=== PATIENT | female | born 1940 | race Caucasian/White ===

== ENCOUNTER 2017-02-08 12:13 | Emergency (ER) | payer MEDICARE, MEDICAID, OTHER ==
--- NOTE | 2017-02-08 12:38 | EDM.PDOC ---
ED HPI GENERAL MEDICAL PROBLEM - General Chief Complaint: Chest Pain Stated Complaint: [facility] Time Seen by Provider: 02/08/17 12:25 Source of Information: Reports: Patient History Limitations: Reports: No Limitations - History of Present Illness INITIAL COMMENTS - FREE TEXT/NARRATIVE: Patient is a 77-year-old female who presents to the ED complaining of substernal chest pain that radiated into her back. Patient states it started at about 10:00 this morning while sitting at the kitchen table. There was no provoking activities. She's had similar pain in the past prior to having open coronary bypass surgery in 2005. This was performed at [facility]. She had 3x bypass. She did become mildly diaphoretic and started shaking. She had no dizziness, no radiation of pain in her left or right arm. Pain is currently gone at this time. She has no complaints. Vital signs are stable. Past medical history includes diabetes, coronary disease, hypertension, hypothyroidism, anemia, and congestive heart failure. Current Medications: Aspirin [Halfprin] 81 mg PO DAILY 02/26/15 Ferrous Sulfate 325 mg PO QPM 02/26/15 Furosemide 40 mg PO DAILY 02/26/15 Insulin Aspart [Novolog] 8 unit SQ TID 02/26/15 Insulin Glarg,Human.Rec.Analog [LantUS Solostar] 10 units SUBCUT BEDTIME Levothyroxine [Synthroid] 88 mcg PO DAILY 02/26/15 Levofloxacin [Levaquin] 750 mg PO DAILY #7 tablet 06/12/16 Metoprolol Succinate [Toprol XL] 25 mg PO DAILY 06/12/16 Pertinent surgical history includes coronary artery bypass grafts. 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 - Related Data Allergies Allergy/AdvReac Type Severity Reaction Status Date / Time aloe vera Allergy Rash Verified 02/08/17 12:23 band-aids Allergy Rash Uncoded 06/12/16 16:56 Home Meds: Home Meds Aspirin [Halfprin] 81 mg PO DAILY 02/26/15 [History] Ferrous Sulfate 325 mg PO QPM 02/26/15 [History] Furosemide 40 mg PO DAILY 02/26/15 [History] Insulin Aspart [Novolog] 8 unit SQ TID 02/26/15 [History] Insulin Glarg,Human.Rec.Analog [LantUS Solostar] 10 units SUBCUT BEDTIME [History] Levothyroxine [Synthroid] 88 mcg PO DAILY 02/26/15 [History] Levofloxacin [Levaquin] 750 mg PO DAILY #7 tablet 06/12/16 [Rx] Metoprolol Succinate [Toprol XL] 25 mg PO DAILY 06/12/16 [History] Nitroglycerin 0.4 mg SL ASDIRECTED PRN #1 bottle 02/08/17 [Rx] Past Medical History Cardiovascular History: Reports: High Cholesterol, Hypertension, [place] Gastrointestinal History: Reports: Chronic Constipation Endocrine/Metabolic History: Reports: Diabetes, Type II - Past Surgical History HEENT Surgical History: Reports: Cataract Surgery Cardiovascular Surgical History: Reports: Other (See Below) Social & Family History - Tobacco Use Smoking Status *Q: Never Smoker - Caffeine Use Caffeine Use: Reports: Coffee - Recreational Drug Use Recreational Drug Use: No ED ROS GENERAL - Review of Systems Review Of Systems: See Below Constitutional: Reports: Diaphoresis. Denies: Fever, Chills, Decreased Appetite HEENT: Reports: No Symptoms Respiratory: Denies: Shortness of Breath, Cough, Sputum Cardiovascular: Reports: Chest Pain. Denies: Dyspnea on Exertion, Lightheadedness, Palpitations, Syncope GI/Abdominal: Denies: Abdominal Pain, Constipation, Diarrhea, Nausea, Vomiting Musculoskeletal: Reports: Back Pain Neurological: Denies: Dizziness, Headache, Numbness, Tingling ED EXAM, GENERAL - Physical Exam Exam: See Below Exam Limited By: No Limitations General Appearance: Alert, WD/WN, No Apparent Distress Eye Exam: Bilateral Eye: PERRL Ears: Hearing Grossly Normal Nose: Normal Inspection Throat/Mouth: Normal Voice, No Airway Compromise Head: Atraumatic, Normocephalic Neck: Normal Inspection, Supple, Non-Tender, Other (no jvd) Respiratory/Chest: No Respiratory Distress, Lungs Clear, Normal Breath Sounds, No Accessory Muscle Use, Chest Non-Tender Cardiovascular: Normal Peripheral Pulses, Regular Rate, Rhythm, Systolic Murmur Peripheral Pulses: 2+: Radial (L), Radial (R) GI/Abdominal: Normal Bowel Sounds, Soft, Non-Tender, No Organomegaly, No Distention Back Exam: Normal Inspection. No: CVA Tenderness (L), CVA Tenderness (R), Muscle Spasm, Paraspinal Tenderness, Vertebral Tenderness Extremities: Normal Inspection, Non-Tender, No Pedal Edema, Normal Capillary Refill Neurological: Alert, Oriented, CN II-XII Intact, Normal Cognition, No Motor/ Sensory Deficits Psychiatric: Normal Affect, Normal Mood Skin Exam: Warm, Dry, Intact, Normal Color, No Rash Course - Vital Signs Last Recorded V/S: Last Vital Signs Temp 97.3 F 02/08/17 12:19 Pulse 73 02/08/17 16:15 Resp 16 02/08/17 16:15 BP 163/70 H 02/08/17 16:15 Pulse Ox 98 02/08/17 16:15 - Orders/Labs/Meds Orders: Active Orders 24 hr Category Date Time Status Blood Glucose Check, Bedside [RC] ONETIME Care 02/08/17 15:04 Active EKG Documentation Completion [RC] STAT Care 02/08/17 12:34 Active Labs: Laboratory Tests 02/08/17 02/08/17 02/08/17 Range/Units 12:50 12:50 12:50 WBC 7.61 (3.98-10.04) K/mm3 RBC 4.72 (3.98-5.22) M/mm3 Hgb 12.9 (11.2-15.7) gm/L Hct 40.6 (34.1-44.9) % MCV 86.0 (79.4-94.8) fl MCH 27.3 (25.6-32.2) pg MCHC 31.8 L (32.2-35.5) g/dl RDW Std Deviation 50.4 H (36.4-46.3) fL Plt Count 248 (182-369) K/mm3 MPV 9.3 L (9.4-12.3) fl Neut % (Auto) 73.7 H (34.0-71.1) % Lymph % (Auto) 17.3 L (19.3-51.7) % [place] % (Auto) 7.2 (4.7-12.5) % Eos % (Auto) 1.2 (0.7-5.8) Baso % (Auto) 0.5 (0.1-1.2) % Neut # (Auto) 5.60 (1.56-6.13) K/mm3 Lymph # (Auto) 1.32 (1.18-3.74) K/mm3 [place] # (Auto) 0.55 H (0.24-0.36) K/mm3 Eos # (Auto) 0.09 (0.04-0.36) K/mm3 Baso # (Auto) 0.04 (0.01-0.08) K/mm3 PT 11.5 (8.0-13.0) SECONDS INR 1.05 APTT (22-36) SECONDS Sodium 141 (136-145) mEq/L Potassium 3.9 (3.5-5.1) mEq/L Chloride 105 (98-107) mEq/L Carbon Dioxide 29 (21-32) mEq/L Anion Gap 10.9 (5-15) BUN 19 H (7-18) mg/dL Creatinine 1.0 (0.55-1.02) mg/dL Est Cr Clr Drug Dosing TNP Estimated GFR (MDRD) 54 (>60) mL/min BUN/Creatinine Ratio 19.0 H (14-18) Glucose 108 (83-115) mg/dL POC Glucose (83-110) mg/dL Calcium 9.1 (8.5-10.1) mg/dL Total Bilirubin 0.7 (0.2-1.0) mg/dL AST 37 (15-37) U/L ALT 26 (14-59) U/L Alkaline Phosphatase 81 (46-116) U/L Troponin I < 0.017 (0.00-0.056) ng/mL C-Reactive Protein 1.0 (<1.0) mg/dL Total Protein 7.2 (6.4-8.2) g/dl Albumin 3.2 L (3.4-5.0) g/dl Globulin 4.0 gm/dL Albumin/Globulin Ratio 0.8 L (1-2) TSH 3rd Generation 1.996 (0.358-3.74) uIU/mL 02/08/17 02/08/17 02/08/17 Range/Units 12:50 14:55 15:03 WBC (3.98-10.04) K/mm3 RBC (3.98-5.22) M/mm3 Hgb (11.2-15.7) gm/L Hct (34.1-44.9) % MCV (79.4-94.8) fl MCH (25.6-32.2) pg MCHC (32.2-35.5) g/dl RDW Std Deviation (36.4-46.3) fL Plt Count (182-369) K/mm3 MPV (9.4-12.3) fl Neut % (Auto) (34.0-71.1) % Lymph % (Auto) (19.3-51.7) % [place] % (Auto) (4.7-12.5) % Eos % (Auto) (0.7-5.8) Baso % (Auto) (0.1-1.2) % Neut # (Auto) (1.56-6.13) K/mm3 Lymph # (Auto) (1.18-3.74) K/mm3 [place] # (Auto) (0.24-0.36) K/mm3 Eos # (Auto) (0.04-0.36) K/mm3 Baso # (Auto) (0.01-0.08) K/mm3 PT (8.0-13.0) SECONDS INR APTT 26 (22-36) SECONDS Sodium (136-145) mEq/L Potassium (3.5-5.1) mEq/L Chloride (98-107) mEq/L Carbon Dioxide (21-32) mEq/L Anion Gap (5-15) BUN (7-18) mg/dL Creatinine (0.55-1.02) mg/dL Est Cr Clr Drug Dosing Estimated GFR (MDRD) (>60) mL/min BUN/Creatinine Ratio (14-18) Glucose (83-115) mg/dL POC Glucose 110 (83-110) mg/dL Calcium (8.5-10.1) mg/dL Total Bilirubin (0.2-1.0) mg/dL AST (15-37) U/L ALT (14-59) U/L Alkaline Phosphatase (46-116) U/L Troponin I < 0.017 (0.00-0.056) ng/mL C-Reactive Protein (<1.0) mg/dL Total Protein (6.4-8.2) g/dl Albumin (3.4-5.0) g/dl Globulin gm/dL Albumin/Globulin Ratio (1-2) TSH 3rd Generation (0.358-3.74) uIU/mL - Re-Assessments/Exams Free Text/Narrative Re-Assessment/Exam: 02/08/17 12:36 Ordered chest x-ray, CBC, chem 14, troponin, PT/INR, PTT, and TSH. Patient has taken 2 adult aspirin this morning with onset of pain. Patient is pain-free at this time. EKG sinus rhythm at 60 beats per minute, T-wave inversion V1 through V3, cannot rule out ischemia, decreased voltage limb leads, abnormal R wave progression with to transition, T-wave inversion was present V1 and V2 on previous EKG June 12, 2016. Labs reviewed: White blood cell count 7.61, hemoglobin is 12.9, platelets 248, coags within normal limits, sodium 141, potassium 3.9, creatinine 1.0, LFTs within normal limits, troponin less than 0.017, TSH is 1.996. Ordered a troponin to be obtained 2 hours from previous blood draw. Chest x-ray revealed: Cardiomegaly with what appears to be interstitial peripheral lung disease, mild vascular congestion, sternotomy wires present from previous coronary artery bypass, no acute findings noted. Final Interpretation pending. Dr. Phillip reviewed. 02/08/17 15:05 Bedside glucose 110. Patient's can have a diabetic meal. 1541 Second troponin results: Within normal limits. Patient remains pain-free. Offered to admit for further cardiac evaluation and obtain stress test to which she has refused. We'll send the patient home with sublingual nitroglycerin prescription if pain presents again. She will see her primary care provider in the next week for reevaluation and further treatment. Discharged home with instructions as documented. Departure - Departure Time of Disposition: 15:49 Disposition: Home, Self-Care 01 Condition: good Clinical Impression: Chest pain in adult Prescriptions: Nitroglycerin 0.4 mg SL ASDIRECTED PRN #1 bottle PRN Reason: Chest Pain Instructions: Chest Wall Pain, [id number] Referrals: Lianet Tejada NP [Primary Care Provider] - Forms: ED Department Discharge Additional Instructions: As discussed labs, chest x-ray, EKG did not reveal any acute findings suggesting you're having a heart attack. Due to your history of similar pain prior to when he had a coronary artery bypass will go ahead and prescribe sublingual nitroglycerin to which you take 1 tab every 5 minutes with onset of chest pain. Upon onset of chest pain please call 911 so that she be transported and seen at the closest ER. Please see her primary care provider in the next week for reevaluation and schedule stress test if deemed necessary. Again return to ED if experience chest pain, shortness of breath, syncopal episode, dizziness, or any additional new or worsening symptoms. Continue taking all your home medications as prescribed. - My Orders Last 24 Hours: My Active Orders 02/08/17 12:34 EKG Documentation Completion [RC] STAT 02/08/17 15:04 Blood Glucose Check, Bedside [RC] ONETIME - Assessment/Plan Last 24 Hours: My Active Orders 02/08/17 12:34 EKG Documentation Completion [RC] STAT 02/08/17 15:04 Blood Glucose Check, Bedside [RC] ONETIME
--- NOTE | 2017-02-08 15:45 | CR ---
Chest: Two views of the chest were obtained. Comparison: Previous chest x-ray of 02/26/15. Heart is enlarged. Sternotomy wires are noted. Previous CABG is noted. Pulmonary vessels are slightly congested. Lungs otherwise are clear. Degenerative spurring is noted within the spine with osteopenia. Impression: 1. Cardiomegaly and mild pulmonary vascular congestion. 2. Other incidental findings. Diagnostic code #3
[2017-02-08 16:41] VITALS: BP 163/70
== END 2017-02-08 16:15 | disposition home or self-care (01) ==
LOC: JD.ED 12:13
DX: R07.2 Precordial pain (principal); I25.810 Atherosclerosis of coronary artery bypass graft(s) without angina pectoris; D64.9 Anemia, unspecified; E03.9 Hypothyroidism, unspecified; I11.0 Hypertensive heart disease with heart failure; I50.9 Heart failure, unspecified; I25.2 Old myocardial infarction; E78.00 Pure hypercholesterolemia, unspecified; E11.9 Type 2 diabetes mellitus without complications; Z98.49 Cataract extraction status, unspecified eye; Z79.4 Long term (current) use of insulin; Z79.82 Long term (current) use of aspirin; Z79.899 Other long term (current) drug therapy; Z91.09 Other allergy status, other than to drugs and biological substances
CPT/HCPCS: 36415; 71020; 71020-26; 80053; 82962; 84443; 84484; 85025; 85610; 85730; 86140; 93005; 99284; 99285-25

== ENCOUNTER 2017-06-11 16:50 | Inpatient (IN) | payer MEDICARE, OTHER, MEDICAID ==
[2017-06-11] MEDS ORDERED: Ketorolac 30 MG/ML SDV IVPUSH ONE (17:44)
[2017-06-11] MEDS ORDERED: Sodium Chloride 0.9% 1,000 ML IV ONE ×2 (17:44→21:38)
[2017-06-11] MEDS ORDERED: Alum Hydrox/Mag Hydrox/Simeth 30 ML, Lidocaine 2% 15 ML PO ONE ×2 (17:44)
--- NOTE | 2017-06-11 17:47 | EDM.PDOC ---
ED HPI GENERAL MEDICAL PROBLEM - General Chief Complaint: Abdominal Pain Stated Complaint: PAIN IN ABDOMIN Time Seen by Provider: 06/11/17 17:43 Source of Information: Reports: Patient - History of Present Illness INITIAL COMMENTS - FREE TEXT/NARRATIVE: Patient is here today for evaluation of abdominal pain. She states that this started around 11:30 this morning she has had some nausea but no vomiting. She states that she has had this frequently in the past and it will go away. She has had it evaluated but has not had any answers for this. Patient denies any specific trigger of certain foods. She also reports having some left-sided chest pain. She states that this is a burning pain. She denies any dyspnea. She does have cardiac history with previous bypass surgery. She is not currently on any anticoagulation. Abdomen Pain Score (Numeric/FACES): 10 - Related Data Allergies Allergy/AdvReac Type Severity Reaction Status Date / Time aloe vera Allergy Rash Verified 06/11/17 17:05 band-aids Allergy Rash Uncoded 06/11/17 17:05 Home Meds: Home Meds Aspirin [Halfprin] 81 mg PO DAILY 02/26/15 [History] Furosemide 40 mg PO DAILY 02/26/15 [History] Insulin Aspart [Novolog] 5 unit SQ TIDMEALS 02/26/15 [History] Insulin Glarg,Human.Rec.Analog [LantUS Solostar] 10 units SUBCUT BEDTIME [History] Levothyroxine [Synthroid] 88 mcg PO DAILY 02/26/15 [History] Metoprolol Succinate [Toprol XL] 25 mg PO DAILY 06/12/16 [History] Nitroglycerin 0.4 mg SL ASDIRECTED PRN #1 bottle 02/08/17 [Rx] Ascorbate Calcium [Vitamin C] 500 mg PO DAILY 06/11/17 [History] Cholecalciferol (Vitamin D3) [Vitamin D3] 5,000 units PO DAILY 06/11/17 [History ] Cyanocobalamin (Vitamin B12) [Vitamin B12] 1,000 mcg PO DAILY 06/11/17 [History] Iron. 65 mg PO DAILY 06/11/17 [History] Past Medical History Cardiovascular History: Reports: High Cholesterol, Hypertension, [place] Gastrointestinal History: Reports: Chronic Constipation Endocrine/Metabolic History: Reports: Diabetes, Type II - Past Surgical History HEENT Surgical History: Reports: Cataract Surgery Cardiovascular Surgical History: Reports: Other (See Below) Other Cardiovascular Surgeries/Procedures: open heart surgery Social & Family History - Tobacco Use Smoking Status *Q: Never Smoker - Caffeine Use Caffeine Use: Reports: Coffee - Recreational Drug Use Recreational Drug Use: No ED ROS GENERAL - Review of Systems Review Of Systems: See Below Constitutional: Reports: Chills, Malaise, Fatigue, Decreased Appetite. Denies: Fever, Weakness Respiratory: Reports: No Symptoms Cardiovascular: Reports: Chest Pain, Dyspnea on Exertion, Edema. Denies: Lightheadedness GI/Abdominal: Reports: Abdominal Pain, Decreased Appetite, Nausea. Denies: Anorexia, Black Stool, Bloody Stool, Constipation, Diarrhea, Distension : Reports: No Symptoms Skin: Reports: No Symptoms Neurological: Reports: No Symptoms Psychiatric: Reports: No Symptoms ED EXAM, GI/ABD - Physical Exam Exam: See Below Exam Limited By: No Limitations General Appearance: Alert, WD/WN, Moderate Distress Throat/Mouth: Normal Inspection, Normal Oropharynx Neck: Normal Inspection, Supple, Non-Tender Respiratory/Chest: No Respiratory Distress, Lungs Clear, Normal Breath Sounds Cardiovascular: Regular Rate, Rhythm, No Murmur GI/Abdominal Exam: Normal Bowel Sounds, Soft, Other (Moderate epigastric tenderness.) Neurological: Alert, Oriented Psychiatric: Normal Affect, Normal Mood Course - Vital Signs Text/Narrative:: With chest pain troponin was normal and d-dimer was elevated at 1.89. EKG demonstrates sinus rhythm with a rate of 78. CTA of chest demonstrates no evidence of pulmonary emboli. There was a small hiatal hernia visualized on this. Moderate epigastric tenderness. Patient reports that her pain improved initially and ketorolac and then worsened again. She was then given Dilaudid for pain and Zofran for nausea. WBC 10,790 with 90% neutrophils and no bands. Bilirubin is 1.8. AST 634, ALT 272, alkaline phosphatase 200 and lipase 21,827. Patient reportedly had gallstones in the past and had gallbladder removed. Will get right upper quadrant ultrasound to further assess. -Ultrasound is normal liver with no intrahepatic bile duct dilation. No common duct bile duct dilation. Gallbladder not visualized, patient did have reportedly previous cholecystectomy. Discussed with Dr Urbano/CHRIS who does not feel patient needs to be transferred for higher of care at this point. He recommended that she be admitted locally for fluids and MRCP. If not improving or unable to obtain quality MRCP then he would accept in consult at that time. Discussed with Dr. Malik who agrees to admit the patient to check MedSurg/ telemetry. MCG was performed and patient qualifies for inpatient stay. Last Recorded V/S: Last Vital Signs Temp 97.5 F 06/11/17 17:01 Pulse 72 06/11/17 17:01 Resp 20 06/11/17 17:01 BP 165/67 H 06/11/17 17:01 Pulse Ox 100 06/11/17 17:01 - Orders/Labs/Meds Orders: Active Orders 24 hr Category Date Time Status EKG 12 Lead [EKG Documentation Completion] [RC] STAT Care 06/11/17 17:44 Active Ang Chest [CT] Stat Exams 06/11/17 19:50 Taken Gallbladder [Abdomen Ltd] [US] Stat Exams 06/11/17 21:26 Taken Sodium Chloride 0.9% [Normal Saline] 1,000 ml Med 06/11/17 21:38 Active IV ONETIME Sodium Chloride 0.9% [Saline Flush] Med 06/11/17 20:30 Active 10 ml FLUSH ONETIME PRN Medication Orders Sodium Chloride (Normal Saline) 1,000 mls @ 125 mls/hr IV ONETIME ONE Stop: 06/12/17 05:37 Last Admin: 06/11/17 21:56 Dose: 125 mls/hr Sodium Chloride (Saline Flush) 10 ml FLUSH ONETIME PRN PRN Reason: Keep Vein Open Last Admin: 06/11/17 20:43 Dose: 10 ml Labs: Laboratory Tests 06/11/17 06/11/17 06/11/17 Range/Units 18:40 18:40 18:40 WBC 10.79 H (3.98-10.04) K/mm3 RBC 4.75 (3.98-5.22) M/mm3 Hgb 13.0 (11.2-15.7) gm/L Hct 40.8 (34.1-44.9) % MCV 85.9 (79.4-94.8) fl MCH 27.4 (25.6-32.2) pg MCHC 31.9 L (32.2-35.5) g/dl RDW Std Deviation 51.4 H (36.4-46.3) fL Plt Count 228 (182-369) K/mm3 MPV 9.3 L (9.4-12.3) fl Neutrophils % (Manual) 90 H (40-60) % Band Neutrophils % 0 (0-10) % Lymphocytes % (Manual) 9 L (20-40) % Atypical Lymphs % 0 % Monocytes % (Manual) 0 L (2-10) % Eosinophils % (Manual) 0 L (0.7-5.8) % Basophils % (Manual) 1 (0.1-1.2) Platelet Estimate Adequate RBC Morph Comment Normal D-Dimer, Quantitative 1.89 H (0.19-0.59) mg/L Sodium 141 (136-145) mEq/L Potassium 3.9 (3.5-5.1) mEq/L Chloride 102 (98-107) mEq/L Carbon Dioxide 28 (21-32) mEq/L Anion Gap 14.9 (5-15) BUN 21 H (7-18) mg/dL Creatinine 1.2 H (0.55-1.02) mg/dL Est Cr Clr Drug Dosing 33.36 mL/min Estimated GFR (MDRD) 43 (>60) mL/min BUN/Creatinine Ratio 17.5 (14-18) Glucose 196 H (83-115) mg/dL Calcium 9.2 (8.5-10.1) mg/dL Total Bilirubin 1.8 H (0.2-1.0) mg/dL AST 634 H (15-37) U/L ALT 272 H (14-59) U/L Alkaline Phosphatase 200 H (46-116) U/L Troponin I < 0.017 (0.00-0.056) ng/mL C-Reactive Protein 0.4 (<1.0) mg/dL Total Protein 7.4 (6.4-8.2) g/dl Albumin 3.4 (3.4-5.0) g/dl Globulin 4.0 gm/dL Albumin/Globulin Ratio 0.9 L (1-2) Lipase 60602 H (73-393) U/L Urine Color (Yellow) Urine Appearance (Clear) Urine pH (5.0-8.0) Ur Specific [place] (1.005-1.030) Urine Protein (Negative) Urine Glucose (UA) (Negative) Urine Ketones (Negative) Urine Occult Blood (Negative) Urine Nitrite (Negative) Urine Bilirubin (Negative) Urine Urobilinogen (0.2-1.0) Ur Leukocyte Esterase (Negative) Urine RBC (0-5) /hpf Urine WBC (0-5) /hpf Ur Epithelial Cells (0-5) /hpf Urine Bacteria (FEW) /hpf Urine Mucus (FEW) /hpf 06/11/17 Range/Units 20:25 WBC (3.98-10.04) K/mm3 RBC (3.98-5.22) M/mm3 Hgb (11.2-15.7) gm/L Hct (34.1-44.9) % MCV (79.4-94.8) fl MCH (25.6-32.2) pg MCHC (32.2-35.5) g/dl RDW Std Deviation (36.4-46.3) fL Plt Count (182-369) K/mm3 MPV (9.4-12.3) fl Neutrophils % (Manual) (40-60) % Band Neutrophils % (0-10) % Lymphocytes % (Manual) (20-40) % Atypical Lymphs % % Monocytes % (Manual) (2-10) % Eosinophils % (Manual) (0.7-5.8) % Basophils % (Manual) (0.1-1.2) Platelet Estimate RBC Morph Comment D-Dimer, Quantitative (0.19-0.59) mg/L Sodium (136-145) mEq/L Potassium (3.5-5.1) mEq/L Chloride (98-107) mEq/L Carbon Dioxide (21-32) mEq/L Anion Gap (5-15) BUN (7-18) mg/dL Creatinine (0.55-1.02) mg/dL Est Cr Clr Drug Dosing mL/min Estimated GFR (MDRD) (>60) mL/min BUN/Creatinine Ratio (14-18) Glucose (83-115) mg/dL Calcium (8.5-10.1) mg/dL Total Bilirubin (0.2-1.0) mg/dL AST (15-37) U/L ALT (14-59) U/L Alkaline Phosphatase (46-116) U/L Troponin I (0.00-0.056) ng/mL C-Reactive Protein (<1.0) mg/dL Total Protein (6.4-8.2) g/dl Albumin (3.4-5.0) g/dl Globulin gm/dL Albumin/Globulin Ratio (1-2) Lipase (73-393) U/L Urine Color Yellow (Yellow) Urine Appearance Clear (Clear) Urine pH 7.0 (5.0-8.0) Ur Specific [place] 1.020 (1.005-1.030) Urine Protein Trace H (Negative) Urine Glucose (UA) Negative (Negative) Urine Ketones Negative (Negative) Urine Occult Blood Negative (Negative) Urine Nitrite Negative (Negative) Urine Bilirubin Negative (Negative) Urine Urobilinogen 2.0 H (0.2-1.0) Ur Leukocyte Esterase 1+ H (Negative) Urine RBC 0-5 (0-5) /hpf Urine WBC 5-10 H (0-5) /hpf Ur Epithelial Cells 5-10 H (0-5) /hpf Urine Bacteria Few (FEW) /hpf Urine Mucus Few (FEW) /hpf Meds: Medications Generic Name Dose Route Start Last Admin Trade Name Gwen PRN Reason Stop Dose Admin Sodium Chloride 1,000 mls @ 125 mls/hr 06/11/17 21:38 06/11/17 21:56 Normal Saline IV 06/12/17 05:37 125 mls/hr ONETIME ONE Administration Sodium Chloride 10 ml 06/11/17 20:30 06/11/17 20:43 Saline Flush FLUSH 10 ml ONETIME PRN Administration Keep Vein Open Discontinued Medications Generic Name Dose Route Start Last Admin Trade Name Gwen PRN Reason Stop Dose Admin Al Hydroxide/Mg Hydroxide 30 0 ml 06/11/17 17:44 06/11/17 18:31 ml/ Lidocaine HCl 15 ml PO 06/11/17 17:45 45 ml ONETIME ONE Administration Hydromorphone HCl 0.5 mg 06/11/17 21:37 06/11/17 21:42 Dilaudid IVPUSH 06/11/17 21:38 0.5 mg ONETIME ONE Administration Sodium Chloride 1,000 mls @ 999 mls/hr 06/11/17 17:44 06/11/17 18:28 Normal Saline IV 06/11/17 18:44 999 mls/hr ONETIME ONE Administration Iopamidol 100 ml 06/11/17 20:30 06/11/17 20:43 Isovue-370 (76%) IVPUSH 06/11/17 20:31 100 ml ONETIME ONE Administration Ketorolac Tromethamine 30 mg 06/11/17 17:44 06/11/17 18:26 Toradol IVPUSH 06/11/17 17:45 30 mg ONETIME ONE Administration Ondansetron HCl 4 mg 06/11/17 21:51 06/11/17 21:56 Zofran IVPUSH 06/11/17 21:52 4 mg ONETIME ONE Administration Departure - Departure Time of Disposition: 23:17 Disposition: Admitted As Inpatient 65 Condition: Fair Clinical Impression: Pancreatitis, acute Qualifiers: Pancreatitis type: idiopathic Acute pancreatitis complication: no infection or necrosis Qualified Code(s): K85.00 - Idiopathic acute pancreatitis without necrosis or infection - Discharge Information Referrals: Lianet Tejada [employer]ER [Primary Care Provider] - Forms: ED Department Discharge - My Orders Last 24 Hours: My Active Orders 06/11/17 17:44 EKG 12 Lead [EKG Documentation Completion] [RC] STAT 06/11/17 19:50 Ang Chest [CT] Stat 06/11/17 20:30 Sodium Chloride 0.9% [Saline Flush] 10 ml FLUSH ONETIME PRN 06/11/17 21:26 Gallbladder [Abdomen Ltd] [US] Stat 06/11/17 21:38 Sodium Chloride 0.9% [Normal Saline] 1,000 ml IV ONETIME - Assessment/Plan Last 24 Hours: My Active Orders 06/11/17 17:44 EKG 12 Lead [EKG Documentation Completion] [RC] STAT 06/11/17 19:50 Ang Chest [CT] Stat 06/11/17 20:30 Sodium Chloride 0.9% [Saline Flush] 10 ml FLUSH ONETIME PRN 06/11/17 21:26 Gallbladder [Abdomen Ltd] [US] Stat 06/11/17 21:38 Sodium Chloride 0.9% [Normal Saline] 1,000 ml IV ONETIME
[2017-06-11] MEDS ORDERED: Sodium Chloride 0.9% 10 ML Syringe FLUSH PRN (20:30)
[2017-06-11] MEDS ORDERED: Iopamidol 755 Mg/ML 100 ML Bottle IVPUSH ONE (20:30)
[2017-06-11] MEDS ORDERED: HYDROmorphone 0.5 MG/0.5 ML Syringe IVPUSH ONE (21:37)
[2017-06-11] MEDS ORDERED: Ondansetron 4 MG/2 ML SDV IVPUSH ONE (21:51)
[2017-06-11] MEDS ORDERED: HYDROmorphone 0.5 MG/0.5 ML Syringe IVPUSH PRN (23:40)
[2017-06-11] MEDS ORDERED: Dextrose 5%-0.45% NaCl 1,000 ML IV SCH (23:45)
[2017-06-11] MEDS ORDERED: hydrALAZINE 20 MG/ML SDV IM PRN (23:47)
[2017-06-12] MEDS: Insulin Aspart 100 Units/ML 3 ML Pen SUBCUT SCH ×4 (00:41→17:32)
[2017-06-12] MEDS: Levothyroxine 88 MCG Tab PO SCH (06:32)
[2017-06-12] MEDS: Enoxaparin 30 MG/0.3 ML Syringe SUBCUT SCH (08:51)
[2017-06-12] MEDS: Pantoprazole 40 MG Vial IVPUSH SCH ×2 (08:51→21:36)
--- NOTE | 2017-06-12 09:11 | PCM.HP ---
H&P History of Present Illness - General Date of Service: 06/12/17 Source of Information: Patient, Provider History Limitations: Reports: No Limitations - History of Present Illness Initial Comments - Free Text/Narative: 77 year old female with abdominal pain, lipase markedly elevated. CTA (thorax) and abdominal US are unremarkable. Pain started the day of admission; patient reports GB removal. LFTs are elevated in the setting of elevated total bilirubin. The patient reports nausea without vomiting. She denies a change in or GI habits. Additional she complained of chest pain, burning in nature. It is not associated with food or activity. Onset of Symptoms: Reports: Unknown/Unsure Symptom Onset Date: 06/11/17 Duration of Symptoms: Reports: Hour(s):, Getting Worse Location: Reports: Abdomen Severity: Moderate Improves with: Reports: Medication Worsens with: Reports: None Associated Symptoms: Reports: Nausea/Vomiting, Weakness Abdomen Pain Score (Numeric/FACES): 10 - Related Data Allergies/Adverse Reactions: Allergies Allergy/AdvReac Type Severity Reaction Status Date / Time aloe vera Allergy Rash Verified 06/11/17 17:05 band-aids Allergy Rash Uncoded 06/11/17 17:05 Home Medications: Home Meds Aspirin [Halfprin] 81 mg PO DAILY 02/26/15 [History] Furosemide 40 mg PO DAILY 02/26/15 [History] Insulin Aspart [Novolog] 5 unit SQ TIDMEALS 02/26/15 [History] Insulin Glarg,Human.Rec.Analog [LantUS Solostar] 10 units SUBCUT BEDTIME [History] Levothyroxine [Synthroid] 88 mcg PO DAILY 02/26/15 [History] Metoprolol Succinate [Toprol XL] 25 mg PO BID 06/12/16 [History] Nitroglycerin 0.4 mg SL ASDIRECTED PRN #1 bottle 02/08/17 [Rx] Ascorbate Calcium [Vitamin C] 500 mg PO DAILY 06/11/17 [History] Cholecalciferol (Vitamin D3) [Vitamin D3] 5,000 units PO DAILY 06/11/17 [History ] Cyanocobalamin (Vitamin B12) [Vitamin B12] 1,000 mcg PO DAILY 06/11/17 [History] Iron. 65 mg PO DAILY 06/11/17 [History] Isosorbide Mononitrate [Isosorbide Mononitrate ER] 30 mg PO DAILY 06/12/17 [ History] Lisinopril [Zestril] 2.5 mg PO DAILY 06/12/17 [History] Past Medical History HEENT History: Reports: Impaired Vision, Other (See Below) Other HEENT History: wears glasses Cardiovascular History: Reports: High Cholesterol, Hypertension, [place] Gastrointestinal History: Reports: Chronic Constipation [place] History: Reports: Endocrine/Metabolic History: Reports: Diabetes, Type II - Past Surgical History HEENT Surgical History: Reports: Cataract Surgery Cardiovascular Surgical History: Reports: Other (See Below) Other Cardiovascular Surgeries/Procedures: open heart surgery GI Surgical History: Reports: None Endocrine Surgical History: Reports: None Dermatological Surgical History: Reports: None Social & Family History - Family History Family Medical History: Noncontributory - Tobacco Use Smoking Status *Q: Never Smoker Second Hand Smoke Exposure: No - Caffeine Use Caffeine Use: Reports: Coffee Other Caffeine Use: 2 cups of coffee every day - Recreational Drug Use Recreational Drug Use: No H&P Review of Systems - Review of Systems: Review Of Systems: See Below General: Reports: Weakness HEENT: Reports: No Symptoms Pulmonary: Reports: No Symptoms Cardiovascular: Reports: No Symptoms Gastrointestinal: Reports: Abdominal Pain, Constipation Genitourinary: Reports: No Symptoms Musculoskeletal: Reports: No Symptoms Skin: Reports: No Symptoms Psychiatric: Reports: No Symptoms Neurological: Reports: No Symptoms Hematologic/Lymphatic: Reports: No Symptoms Immunologic: Reports: No Symptoms Exam - Exam Exam: See Below - Vital Signs Vital Signs: Last Vital Signs Temp 36.7 C 06/12/17 07:56 Pulse 72 06/12/17 07:56 Resp 14 06/12/17 07:56 BP 104/61 06/12/17 07:56 Pulse Ox 96 06/12/17 07:56 Weight: 103.192 kg - Exam Quality Assessment: DVT Prophylaxis General: Alert, Oriented, Cooperative HEENT: Conjunctiva Clear, EACs Clear, EOMI, Nares Patent, Normal Nasal Septum, Pupils Equal, Pupils Reactive, PERRLA Neck: Supple, Trachea Midline Lungs: Normal Respiratory Effort Cardiovascular: Regular Rate GI/Abdominal Exam: Normal Bowel Sounds, Soft, Non-Tender, No Organomegaly, No Distention (Female) Exam: Deferred Rectal (Female) Exam: Deferred Back Exam: Normal Inspection Extremities: Normal Inspection Skin: Warm Neurological: Cranial Nerves Intact, Normal Speech Neuro Extensive - Mental Status: Alert, Oriented x3, Normal Mood/Affect, Normal Cognition, Memory Intact Neuro Extensive - Motor, Sensory, Reflexes: CN II-XII Intact Psychiatric: Alert, Normal Affect, Normal Mood - Patient Data Lab Results Last 24 hrs: Laboratory Results - last 24 hr 06/12/17 06/12/17 06/12/17 Range/Units 00:38 04:32 04:32 WBC 16.64 H (3.98-10.04) K/mm3 RBC 4.11 (3.98-5.22) M/mm3 Hgb 11.4 (11.2-15.7) gm/L Hct 35.4 (34.1-44.9) % MCV 86.1 (79.4-94.8) fl MCH 27.7 (25.6-32.2) pg MCHC 32.2 (32.2-35.5) g/dl RDW Std Deviation 51.7 H (36.4-46.3) fL Plt Count 198 (182-369) K/mm3 MPV 9.9 (9.4-12.3) fl Sodium 139 (136-145) mEq/L Potassium 4.2 (3.5-5.1) mEq/L Chloride 104 (98-107) mEq/L Carbon Dioxide 24 (21-32) mEq/L Anion Gap 15.2 H (5-15) BUN 26 H (7-18) mg/dL Creatinine 1.4 H (0.55-1.02) mg/dL Est Cr Clr Drug Dosing 28.60 mL/min Estimated GFR (MDRD) 36 (>60) mL/min BUN/Creatinine Ratio 18.6 H (14-18) Glucose 258 H (83-115) mg/dL POC Glucose 243 H (83-110) mg/dL Calcium 9.0 (8.5-10.1) mg/dL Magnesium 2.2 (1.8-2.4) mg/dl 06/12/17 Range/Units 06:29 WBC (3.98-10.04) K/mm3 RBC (3.98-5.22) M/mm3 Hgb (11.2-15.7) gm/L Hct (34.1-44.9) % MCV (79.4-94.8) fl MCH (25.6-32.2) pg MCHC (32.2-35.5) g/dl RDW Std Deviation (36.4-46.3) fL Plt Count (182-369) K/mm3 MPV (9.4-12.3) fl Sodium (136-145) mEq/L Potassium (3.5-5.1) mEq/L Chloride (98-107) mEq/L Carbon Dioxide (21-32) mEq/L Anion Gap (5-15) BUN (7-18) mg/dL Creatinine (0.55-1.02) mg/dL Est Cr Clr Drug Dosing mL/min Estimated GFR (MDRD) (>60) mL/min BUN/Creatinine Ratio (14-18) Glucose (83-115) mg/dL POC Glucose 218 H (83-110) mg/dL Calcium (8.5-10.1) mg/dL Magnesium (1.8-2.4) mg/dl Result Diagrams: 06/12/17 04:32 06/13/17 05:20 *Q Meaningful Use (ADM) - VTE *Q VTE Criteria *Q: - Stroke *Q Stroke Criteria *Q: - AMI *Q AMI Criteria *Q: - Problem List (1) Pancreatitis, acute SNOMED Code(s): 263108144 ICD Code: K85.90 - ACUTE PANCREATITIS WITHOUT NECROSIS OR INFECTION, UNSP Status: Acute Current Visit: Yes Qualifiers: Pancreatitis type: idiopathic Acute pancreatitis complication: no infection or necrosis Qualified Code(s): K85.00 - Idiopathic acute pancreatitis without necrosis or infection (2) Chest pain in adult SNOMED Code(s): 64279145 ICD Code: R07.9 - CHEST PAIN, UNSPECIFIED Status: Acute Current Visit: No (3) Elevated bilirubin SNOMED Code(s): 056908096 ICD Code: R17 - UNSPECIFIED JAUNDICE Status: Acute Current Visit: No (4) Elevated liver enzymes SNOMED Code(s): 423845049 ICD Code: R74.8 - ABNORMAL LEVELS OF OTHER SERUM ENZYMES Status: Acute Current Visit: No (5) Epigastric abdominal pain SNOMED Code(s): 60298116 ICD Code: R10.13 - EPIGASTRIC PAIN Status: Acute Current Visit: No (6) Non-cardiac chest pain SNOMED Code(s): 262943982 ICD Code: R07.89 - OTHER CHEST PAIN Status: Acute Current Visit: No Problem List Initiated/Reviewed/Updated: Yes Orders Last 24hrs: Active Orders 24 hr Category Date Time Status Patient Status [ADT] Routine ADT 06/12/17 08:59 Active Blood Glucose Check, Bedside [RC] Q6HR Care 06/11/17 23:39 Active NPO [Nothing Per Oral Diet] [DIET] Diet 06/12/17 Breakfast Active Dextrose 5%-0.45% NaCl [Dextrose 5%-1/2 NS] 1,000 ml Med 06/11/17 23:45 Active IV ASDIRECTED Enoxaparin [Lovenox] Med 06/12/17 09:00 Active 30 mg SUBCUT DAILY HYDROmorphone [Dilaudid] Med 06/11/17 23:40 Active 0.5 mg IVPUSH Q4H PRN Insulin Aspart [NovoLOG] Med 06/11/17 23:59 Active See Protocol SUBCUT Q6H Levothyroxine [Synthroid] Med 06/12/17 07:00 Active 88 mcg PO ACBREAKFAST Metoprolol Tartrate [Lopressor] Med 06/12/17 09:00 Active 12.5 mg PO Q12HR Pantoprazole [ProTONIX IV] Med 06/12/17 09:00 Active 40 mg IVPUSH Q12H hydrALAZINE [Apresoline] Med 06/11/17 23:47 Active 20 mg IM Q6H PRN Code Status [Resuscitation Status] Routine Resus Stat 06/12/17 01:06 Ordered Medication Orders Enoxaparin Sodium (Lovenox) 30 mg SUBCUT DAILY [facility] Last Admin: 06/12/17 08:51 Dose: 30 mg Hydralazine HCl (Apresoline) 20 mg IM Q6H PRN PRN Reason: Hypertension Hydromorphone HCl (Dilaudid) 0.5 mg IVPUSH Q4H PRN PRN Reason: Pain Dextrose/Sodium Chloride (Dextrose 5%-1/2 Ns) 1,000 mls @ 75 mls/hr IV ASDIRECTED [facility] Last Admin: 06/12/17 00:39 Dose: 75 mls/hr Insulin Aspart (Novolog) 0 unit SUBCUT Q6H [facility] PRN Reason: Protocol Last Admin: 06/12/17 06:30 Dose: 2 units Admin: 06/12/17 00:41 Dose: 2 units Levothyroxine Sodium (Synthroid) 88 mcg PO ACBREAKFAST [facility] Last Admin: 06/12/17 06:32 Dose: 88 mcg Metoprolol Tartrate (Lopressor) 12.5 mg PO Q12HR [facility] Pantoprazole Sodium (Protonix Iv) 40 mg IVPUSH Q12H [facility] Last Admin: 06/12/17 08:51 Dose: 40 mg Assessment/Plan Comment:: Impression: Abdominal pain of unclear etiology; abdominal US completed in ED. Query pancreatitis AUTI Hx of CAD/CABG with atypical CP Abnormal LFT/t bili Chronic DM, type II HTN HLD Plan: D5 with 0.[address] of abdomen/pelvis after IVF hydration Start Rocephin 1 gm Q 24 hours Protonix IV BID Follow daily labs, repeat lipase Evaluate cardiac source, repeat Tn I DVT/GI prophylaxis
[2017-06-12] MEDS ORDERED: Nitroglycerin 0.4 MG Tab.SL SL PRN (09:19)
[2017-06-12] MEDS: Metoprolol Tartrate 25 MG Tab PO SCH ×2 (12:04→21:36)
[2017-06-12] MEDS: Dextrose 5%-0.45% NaCl 1,000 ML IV SCH (14:09)
[2017-06-12] MEDS: cefTRIAXone 1 GM in Sodium Chloride 0.9% 100 ML IV SCH (15:26)
[2017-06-13] MEDS: Insulin Aspart 100 Units/ML 3 ML Pen SUBCUT SCH ×4 (00:16→19:45)
[2017-06-13] MEDS: Dextrose 5%-0.45% NaCl 1,000 ML IV SCH (01:10)
[2017-06-13] MEDS ORDERED: Levothyroxine 88 MCG Tab PO SCH (06:00)
[2017-06-13] MEDS: Levothyroxine 88 MCG Tab PO SCH (06:22)
[2017-06-13] MEDS ORDERED: Metoprolol Succinate 50 MG Tab.ER PO SCH (09:00)
[2017-06-13] MEDS: Pantoprazole 40 MG Vial IVPUSH SCH ×2 (09:57→20:29)
[2017-06-13] MEDS: Enoxaparin 30 MG/0.3 ML Syringe SUBCUT SCH (09:57)
[2017-06-13] MEDS: Isosorbide Mononitrate 30 MG Tab.ER PO SCH (09:57)
[2017-06-13] MEDS: Metoprolol Tartrate 25 MG Tab PO SCH ×2 (09:57→20:29)
[2017-06-13] MEDS ORDERED: Furosemide 20 MG/2 ML VIAL IVPUSH ONE (10:15)
[2017-06-13] MEDS: Spironolactone 25 MG Tab PO SCH (10:47)
[2017-06-13] MEDS ORDERED: Dextrose 5%-0.45% NaCl 1,000 ML IV SCH (11:45)
[2017-06-13] MEDS: cefTRIAXone 1 GM in Sodium Chloride 0.9% 100 ML IV SCH (14:51)
--- NOTE | 2017-06-13 16:50 | PCM.PN ---
- General Info Date of Service: 06/13/17 Functional Status: Reports: Pain Controlled, Tolerating Diet, Ambulating, Urinating - Review of Systems General: Reports: No Symptoms HEENT: Reports: No Symptoms Pulmonary: Reports: No Symptoms Cardiovascular: Reports: No Symptoms Gastrointestinal: Reports: No Symptoms Genitourinary: Reports: No Symptoms Musculoskeletal: Reports: No Symptoms Skin: Reports: No Symptoms Neurological: Reports: No Symptoms Psychiatric: Reports: No Symptoms - Patient Data Vitals - Most Recent: Last Vital Signs Temp 36.5 C 06/13/17 02:48 Pulse 71 06/13/17 09:57 Resp 12 06/13/17 02:48 BP 141/60 H 06/13/17 09:57 Pulse Ox 95 06/13/17 02:48 Weight - Most Recent: 103.192 kg I&O - Last 24 Hours: Intake & Output 06/13/17 06/13/17 06/13/17 06:59 14:59 22:59 Intake Total 1460 540 Output Total 225 Balance 1235 540 Lab Results Last 24 Hours: Laboratory Results - last 24 hr 06/12/17 06/12/17 06/13/17 Range/Units 14:10 17:00 00:12 Sodium (136-145) mEq/L Potassium (3.5-5.1) mEq/L Chloride (98-107) mEq/L Carbon Dioxide (21-32) mEq/L Anion Gap (5-15) BUN (7-18) mg/dL Creatinine (0.55-1.02) mg/dL Est Cr Clr Drug Dosing mL/min Estimated GFR (MDRD) (>60) mL/min BUN/Creatinine Ratio (14-18) Glucose (83-115) mg/dL POC Glucose 123 H 197 H (83-110) mg/dL Calcium (8.5-10.1) mg/dL Total Bilirubin (0.2-1.0) mg/dL Direct Bilirubin (0.0-0.2) mg/dl AST (15-37) U/L ALT (14-59) U/L Alkaline Phosphatase (46-116) U/L Creatine Kinase (26-192) U/L Troponin I < 0.017 (0.00-0.056) ng/mL NT-Pro-B Natriuret Pep (0-450) pg/mL Total Protein (6.4-8.2) g/dl Albumin (3.4-5.0) g/dl Globulin gm/dL Albumin/Globulin Ratio (1-2) Triglycerides (<150) mg/dL Cholesterol (<200) mg/dL LDL Cholesterol Direct (<100) mg/dL HDL Cholesterol (40-59) mg/dL Lipase (73-393) U/L TSH 3rd Generation (0.358-3.74) uIU/mL 06/13/17 06/13/17 06/13/17 Range/Units 05:20 06:24 12:16 Sodium 141 (136-145) mEq/L Potassium 3.9 (3.5-5.1) mEq/L Chloride 106 (98-107) mEq/L Carbon Dioxide 27 (21-32) mEq/L Anion Gap 11.9 (5-15) BUN 18 (7-18) mg/dL Creatinine 1.0 (0.55-1.02) mg/dL Est Cr Clr Drug Dosing 40.04 mL/min Estimated GFR (MDRD) 54 (>60) mL/min BUN/Creatinine Ratio 18.0 (14-18) Glucose 186 H (83-115) mg/dL POC Glucose 206 H 158 H (83-110) mg/dL Calcium 8.5 (8.5-10.1) mg/dL Total Bilirubin 3.1 H (0.2-1.0) mg/dL Direct Bilirubin 2.30 H (0.0-0.2) mg/dl AST 279 H (15-37) U/L ALT 387 H (14-59) U/L Alkaline Phosphatase 161 H (46-116) U/L Creatine Kinase 38 (26-192) U/L Troponin I (0.00-0.056) ng/mL NT-Pro-B Natriuret Pep 1903 H (0-450) pg/mL Total Protein 5.9 L (6.4-8.2) g/dl Albumin 2.6 L (3.4-5.0) g/dl Globulin 3.3 gm/dL Albumin/Globulin Ratio 0.8 L (1-2) Triglycerides 60 (<150) mg/dL Cholesterol 110 (<200) mg/dL LDL Cholesterol Direct 71 (<100) mg/dL HDL Cholesterol 28.0 L (40-59) mg/dL Lipase 309 (73-393) U/L TSH 3rd Generation 0.891 (0.358-3.74) uIU/mL Med Orders - Current: Current Medications Enoxaparin Sodium (Lovenox) 30 mg SUBCUT DAILY [facility] Last Admin: 06/13/17 09:57 Dose: 30 mg Hydralazine HCl (Apresoline) 20 mg IM Q6H PRN PRN Reason: Hypertension Hydromorphone HCl (Dilaudid) 0.5 mg IVPUSH Q4H PRN PRN Reason: Pain Ceftriaxone Sodium 1 gm/ (Sodium Chloride) 100 mls @ 200 mls/hr IV Q24H [facility] Last Admin: 06/13/17 14:51 Dose: 200 mls/hr Dextrose/Sodium Chloride (Dextrose 5%-1/2 Ns) 1,000 mls @ 50 mls/hr IV ASDIRECTED [facility] Last Admin: 06/13/17 11:16 Dose: 50 mls/hr Insulin Aspart (Novolog) 0 unit SUBCUT Q6H [facility] PRN Reason: Protocol Last Admin: 06/13/17 12:21 Dose: 1 units Isosorbide Mononitrate (Imdur) 30 mg PO DAILY [facility] Last Admin: 06/13/17 09:57 Dose: 30 mg Levothyroxine Sodium (Synthroid) 88 mcg PO ACBREAKFAST [facility] Last Admin: 06/13/17 06:22 Dose: 88 mcg Metoprolol Tartrate (Lopressor) 12.5 mg PO Q12HR [facility] Last Admin: 06/13/17 09:57 Dose: 12.5 mg Nitroglycerin (Nitrostat) 0.4 mg SL ASDIRECTED PRN PRN Reason: Chest Pain Pantoprazole Sodium (Protonix Iv) 40 mg IVPUSH Q12H [facility] Last Admin: 06/13/17 09:57 Dose: 40 mg Spironolactone (Aldactone) 25 mg PO DAILY [facility] Last Admin: 06/13/17 10:47 Dose: 25 mg Discontinued Medications Al Hydroxide/Mg Hydroxide 30 (ml/ Lidocaine HCl 15 ml) 0 ml PO ONETIME ONE Stop: 06/11/17 17:45 Last Admin: 06/11/17 18:31 Dose: 45 ml Furosemide (Lasix) 20 mg IVPUSH NOW ONE Stop: 06/13/17 10:16 Last Admin: 06/13/17 10:47 Dose: 20 mg Hydromorphone HCl (Dilaudid) 0.5 mg IVPUSH ONETIME ONE Stop: 06/11/17 21:38 Last Admin: 06/11/17 21:42 Dose: 0.5 mg Sodium Chloride (Normal Saline) 1,000 mls @ 999 mls/hr IV ONETIME ONE Stop: 06/11/17 18:44 Last Admin: 06/11/17 18:28 Dose: 999 mls/hr Sodium Chloride (Normal Saline) 1,000 mls @ 125 mls/hr IV ONETIME ONE Stop: 06/12/17 05:37 Last Admin: 06/11/17 21:56 Dose: 125 mls/hr Dextrose/Sodium Chloride (Dextrose 5%-1/2 Ns) 1,000 mls @ 100 mls/hr IV ASDIRECTED [facility] Last Admin: 06/12/17 00:39 Dose: 75 mls/hr Dextrose/Sodium Chloride (Dextrose 5%-1/2 Ns) 1,000 mls @ 75 mls/hr IV ASDIRECTED [facility] Last Admin: 06/13/17 01:10 Dose: 100 mls/hr Iopamidol (Isovue-370 (76%)) 100 ml IVPUSH ONETIME ONE Stop: 06/11/17 20:31 Last Admin: 06/11/17 20:43 Dose: 100 ml Ketorolac Tromethamine (Toradol) 30 mg IVPUSH ONETIME ONE Stop: 06/11/17 17:45 Last Admin: 06/11/17 18:26 Dose: 30 mg Levothyroxine Sodium (Synthroid) 88 mcg PO DAILY@0600 [facility] Metoprolol Succinate (Toprol Xl) 25 mg PO DAILY [facility] Ondansetron HCl (Zofran) 4 mg IVPUSH ONETIME ONE Stop: 06/11/17 21:52 Last Admin: 06/11/17 21:56 Dose: 4 mg Sodium Chloride (Saline Flush) 10 ml FLUSH ONETIME PRN PRN Reason: Keep Vein Open Last Admin: 06/11/17 20:43 Dose: 10 ml - Exam Quality Assessment: DVT Prophylaxis General: Alert, Oriented, Cooperative, No Acute Distress HEENT: Pupils Equal, Pupils Reactive, EOMI Neck: Supple, Trachea Midline Lungs: Normal Respiratory Effort Cardiovascular: Regular Rate, Regular Rhythm GI/Abdominal Exam: Normal Bowel Sounds, Soft, Non-Tender, No Organomegaly, No Distention (Female) Exam: Deferred Back Exam: Normal Inspection Extremities: Normal Inspection Skin: Warm Neurological: No New Focal Deficit Psy/Mental Status: Alert, Normal Affect, Normal Mood - Problem List & Annotations (1) Pancreatitis, acute SNOMED Code(s): 250666180 Code(s): K85.90 - ACUTE PANCREATITIS WITHOUT NECROSIS OR INFECTION, UNSP Status: Acute Current Visit: Yes Qualifiers: Pancreatitis type: idiopathic Acute pancreatitis complication: no infection or necrosis Qualified Code(s): K85.00 - Idiopathic acute pancreatitis without necrosis or infection (2) Chest pain in adult SNOMED Code(s): 72360710 Code(s): R07.9 - CHEST PAIN, UNSPECIFIED Status: Acute Current Visit: No (3) Elevated bilirubin SNOMED Code(s): 023765384 Code(s): R17 - UNSPECIFIED JAUNDICE Status: Acute Current Visit: No (4) Elevated liver enzymes SNOMED Code(s): 210602564 Code(s): R74.8 - ABNORMAL LEVELS OF OTHER SERUM ENZYMES Status: Acute Current Visit: No (5) Epigastric abdominal pain SNOMED Code(s): 72245537 Code(s): R10.13 - EPIGASTRIC PAIN Status: Acute Current Visit: No (6) Non-cardiac chest pain SNOMED Code(s): 931483998 Code(s): R07.89 - OTHER CHEST PAIN Status: Acute Current Visit: No - Problem List Review Problem List Initiated/Reviewed/Updated: Yes - My Orders Last 24 Hours: My Active Orders 06/13/17 09:00 Isosorbide Mononitrate [Imdur] 30 mg PO DAILY 06/13/17 10:00 Spironolactone [Aldactone] 25 mg PO DAILY 06/13/17 11:45 Dextrose 5%-0.45% NaCl [Dextrose 5%-1/2 NS] 1,000 ml IV ASDIRECTED 06/13/17 Lunch Clear Liquid Diet [DIET] 06/14/17 05:00 CBC WITH AUTO DIFF [HEME] DAILY CMP [COMPREHENSIVE METABOLIC PN,CMP] [CHEM] DAILY LIPASE [CHEM] DAILY 06/14/17 08:00 Abdomen Pelvis w wo Cont [CT] Routine Abdomen w Cont [MR] Routine 06/14/17 10:00 Echo Comp wo Cont [US] Routine 06/15/17 05:00 CBC WITH AUTO DIFF [HEME] DAILY CMP [COMPREHENSIVE METABOLIC PN,CMP] [CHEM] DAILY LIPASE [CHEM] DAILY 06/16/17 05:00 CBC WITH AUTO DIFF [HEME] DAILY CMP [COMPREHENSIVE METABOLIC PN,CMP] [CHEM] DAILY LIPASE [CHEM] DAILY 06/17/17 05:00 CBC WITH AUTO DIFF [HEME] DAILY - Plan Plan:: Impression: Abdominal pain of unclear etiology; abdominal US completed in ED. Hyperbilirubinemia with elevated transaminases Doubt pancreatitis AUTI on day 2 of Rocephin Hx of CAD/CABG with atypical CP Chronic DM, type II HTN HLD Plan: D5 with 0.9 NS, decrease rate, start clear liquids. [facility], 06/14 Start Rocephin 1 gm Q 24 hours Protonix IV BID Follow daily labs, repeat lipase Evaluate cardiac source, repeat Tn I DVT/GI prophylaxis
--- NOTE | 2017-06-13 20:01 | US ---
Limited abdominal ultrasound: Multiple real-time images of the upper right abdomen were obtained. Technologist's note: Limited study due to body habitus and bowel gas Liver shows no discrete abnormality. Right kidney shows no hydronephrosis or mass and has a length of around 9.1 cm. Gallbladder not visualized. No biliary duct dilatation is seen. Visualized portions of the pancreas are grossly unremarkable. Impression: 1. Less than optimal study as described above. Nothing acute is grossly seen. Diagnostic code #2 I agree with preliminary report issued by [employer] ([facility] preliminary report dictated on 06/11/17, 11:51 PM Central Time)
--- NOTE | 2017-06-13 20:02 | CT ---
CT chest Technique: Multiple axial sections through the chest were obtained. Intravenous contrast was utilized. Comparison: Previous chest CT study of 09/05/12 is available. Findings: Pulmonary arteries are well-opacified. No filling defects are seen to indicate pulmonary embolism. Extensive coronary artery calcification is noted. Previous sternotomy is noted. Lymph nodes are scattered within the mediastinum believed to be within normal limits. Small hiatal hernia is seen. Trace right sided pleural effusion is noted. Previous cholecystectomy is seen with mild intrahepatic and extrahepatic biliary duct dilatation most likely relating to previous intervention at the sphincter of [place]. Mild areas of increased density noted within both lung bases most likely representing a combination of scarring and atelectasis. Lungs otherwise are clear. Bone window settings were reviewed which show diffuse degenerative spurring within the spine. Atherosclerotic calcification is seen within the thoracic aorta and branch vessels. No aneurysm is seen within the thoracic aorta. Impression: 1. No findings of pulmonary embolism. 2. Other findings as described above believed to be incidental. Diagnostic code #2 I agree with preliminary report issued by [employer] ([facility] preliminary report dictated on 06/11/17, 10:00 P.M. Central Time)
[2017-06-13] MEDS ORDERED: Magnesium Hydroxide 400 MG/5 ML Susp 30 ML Cup PO ONE (20:06)
[2017-06-14] MEDS: Insulin Aspart 100 Units/ML 3 ML Pen SUBCUT SCH ×4 (01:26→17:39)
[2017-06-14] MEDS: Levothyroxine 88 MCG Tab PO SCH (06:14)
[2017-06-14] MEDS: Pantoprazole 40 MG Vial IVPUSH SCH ×2 (08:18→20:30)
[2017-06-14] MEDS: Enoxaparin 30 MG/0.3 ML Syringe SUBCUT SCH (08:18)
[2017-06-14] MEDS: Metoprolol Tartrate 25 MG Tab PO SCH ×2 (08:19→20:28)
[2017-06-14] MEDS: Isosorbide Mononitrate 30 MG Tab.ER PO SCH (08:19)
[2017-06-14] MEDS: Spironolactone 25 MG Tab PO SCH (08:19)
--- NOTE | 2017-06-14 14:45 | MR ---
MRI abdomen with MRCP Technique: Various sequences were obtained without contrast in both axial and coronal planes. MRCP study also performed. Comparison: Previous limited abdominal ultrasound of 06/11/17 and abdomen and pelvis exam of 06/12/16. Findings: Significant respiratory motion artifact is seen. Small scattered cysts are seen within the spleen. Several small cysts are noted within the both kidneys. No discrete abnormality is seen within the liver other than intrahepatic biliary duct dilatation. Aorta shows no aneurysmal dilatation. Moderately large hiatal hernia is seen. MRCP shows dilated intrahepatic and extrahepatic biliary ducts. Multiple filling defects are seen within the CHD and CBD compatible with choledocholithiasis. Impression: 1. Numerous filling defects within the CHD and CBD compatible with choledocholithiasis. 2. Other incidental findings as noted above. Diagnostic code #3
--- NOTE | 2017-06-14 14:57 | PCM.PN ---
- General Info Date of Service: 06/14/17 Admission Dx/Problem (Free Text): Pancreatitis Functional Status: Reports: Pain Controlled, Tolerating Diet, Ambulating, Urinating. Denies: New Symptoms - Review of Systems General: Reports: No Symptoms HEENT: Reports: No Symptoms Pulmonary: Reports: No Symptoms Cardiovascular: Reports: Edema (pedal; chronic and she is at baseline now ). Denies: Chest Pain, Palpitations, Dyspnea on Exertion Gastrointestinal: Reports: No Symptoms Genitourinary: Reports: No Symptoms Musculoskeletal: Reports: No Symptoms Skin: Reports: No Symptoms Neurological: Reports: No Symptoms Psychiatric: Reports: No Symptoms Systems Review Comment:: Patient denies any current concerns. No pain. She requests a no to low-sodium diet as this is her normal diet at home. - Patient Data Vitals - Most Recent: Last Vital Signs Temp 98.1 F 06/14/17 12:32 Pulse 76 06/14/17 12:32 Resp 14 06/14/17 12:32 BP 141/70 H 06/14/17 12:32 Pulse Ox 94 L 06/14/17 12:32 Weight - Most Recent: 228 lb 14.4 oz I&O - Last 24 Hours: Intake & Output 06/13/17 06/14/17 06/14/17 22:59 06:59 14:59 Intake Total 2029 350 620 Output Total 2024 500 Balance 5 -150 620 Lab Results Last 24 Hours: Laboratory Results - last 24 hr 06/13/17 06/14/17 06/14/17 Range/Units 18:15 00:38 05:45 WBC (3.98-10.04) K/mm3 RBC (3.98-5.22) M/mm3 Hgb (11.2-15.7) gm/L Hct (34.1-44.9) % MCV (79.4-94.8) fl MCH (25.6-32.2) pg MCHC (32.2-35.5) g/dl RDW Std Deviation (36.4-46.3) fL Plt Count (182-369) K/mm3 MPV (9.4-12.3) fl Neut % (Auto) (34.0-71.1) % Lymph % (Auto) (19.3-51.7) % [place] % (Auto) (4.7-12.5) % Eos % (Auto) (0.7-5.8) Baso % (Auto) (0.1-1.2) % Neut # (Auto) (1.56-6.13) K/mm3 Lymph # (Auto) (1.18-3.74) K/mm3 [place] # (Auto) (0.24-0.36) K/mm3 Eos # (Auto) (0.04-0.36) K/mm3 Baso # (Auto) (0.01-0.08) K/mm3 Sodium 143 (136-145) mEq/L Potassium 3.8 (3.5-5.1) mEq/L Chloride 107 (98-107) mEq/L Carbon Dioxide 29 (21-32) mEq/L Anion Gap 10.8 (5-15) BUN 11 (7-18) mg/dL Creatinine 0.9 (0.55-1.02) mg/dL Est Cr Clr Drug Dosing 44.49 mL/min Estimated GFR (MDRD) > 60 (>60) mL/min BUN/Creatinine Ratio 12.2 L (14-18) Glucose 143 H (83-115) mg/dL POC Glucose 156 H 128 H (83-110) mg/dL Calcium 8.7 (8.5-10.1) mg/dL Total Bilirubin 1.6 H (0.2-1.0) mg/dL AST 121 H (15-37) U/L ALT 273 H (14-59) U/L Alkaline Phosphatase 153 H (46-116) U/L Total Protein 6.1 L (6.4-8.2) g/dl Albumin 2.4 L (3.4-5.0) g/dl Globulin 3.7 gm/dL Albumin/Globulin Ratio 0.7 L (1-2) Lipase 111 (73-393) U/L 06/14/17 06/14/17 06/14/17 Range/Units 05:45 05:57 11:26 WBC 5.71 (3.98-10.04) K/mm3 RBC 3.99 (3.98-5.22) M/mm3 Hgb 10.8 L (11.2-15.7) gm/L Hct 34.9 (34.1-44.9) % MCV 87.5 (79.4-94.8) fl MCH 27.1 (25.6-32.2) pg MCHC 30.9 L (32.2-35.5) g/dl RDW Std Deviation 52.4 H (36.4-46.3) fL Plt Count 171 L (182-369) K/mm3 MPV 10.0 (9.4-12.3) fl Neut % (Auto) 72.0 H (34.0-71.1) % Lymph % (Auto) 16.8 L (19.3-51.7) % [place] % (Auto) 8.9 (4.7-12.5) % Eos % (Auto) 1.9 (0.7-5.8) Baso % (Auto) 0.2 (0.1-1.2) % Neut # (Auto) 4.11 (1.56-6.13) K/mm3 Lymph # (Auto) 0.96 L (1.18-3.74) K/mm3 [place] # (Auto) 0.51 H (0.24-0.36) K/mm3 Eos # (Auto) 0.11 (0.04-0.36) K/mm3 Baso # (Auto) 0.01 (0.01-0.08) K/mm3 Sodium (136-145) mEq/L Potassium (3.5-5.1) mEq/L Chloride (98-107) mEq/L Carbon Dioxide (21-32) mEq/L Anion Gap (5-15) BUN (7-18) mg/dL Creatinine (0.55-1.02) mg/dL Est Cr Clr Drug Dosing mL/min Estimated GFR (MDRD) (>60) mL/min BUN/Creatinine Ratio (14-18) Glucose (83-115) mg/dL POC Glucose 138 H 130 H (83-110) mg/dL Calcium (8.5-10.1) mg/dL Total Bilirubin (0.2-1.0) mg/dL AST (15-37) U/L ALT (14-59) U/L Alkaline Phosphatase (46-116) U/L Total Protein (6.4-8.2) g/dl Albumin (3.4-5.0) g/dl Globulin gm/dL Albumin/Globulin Ratio (1-2) Lipase (73-393) U/L Med Orders - Current: Current Medications Enoxaparin Sodium (Lovenox) 30 mg SUBCUT DAILY [facility] Last Admin: 06/14/17 08:18 Dose: 30 mg Hydralazine HCl (Apresoline) 20 mg IM Q6H PRN PRN Reason: Hypertension Hydromorphone HCl (Dilaudid) 0.5 mg IVPUSH Q4H PRN PRN Reason: Pain Ceftriaxone Sodium 1 gm/ (Sodium Chloride) 100 mls @ 200 mls/hr IV Q24H [facility] Last Admin: 06/13/17 14:51 Dose: 200 mls/hr Insulin Aspart (Novolog) 0 unit SUBCUT Q6H [facility] PRN Reason: Protocol Last Admin: 06/14/17 12:08 Dose: Not Given Isosorbide Mononitrate (Imdur) 30 mg PO DAILY [facility] Last Admin: 06/14/17 08:19 Dose: 30 mg Levothyroxine Sodium (Synthroid) 88 mcg PO ACBREAKFAST [facility] Last Admin: 06/14/17 06:14 Dose: 88 mcg Metoprolol Tartrate (Lopressor) 12.5 mg PO Q12HR [facility] Last Admin: 06/14/17 08:19 Dose: 12.5 mg Nitroglycerin (Nitrostat) 0.4 mg SL ASDIRECTED PRN PRN Reason: Chest Pain Pantoprazole Sodium (Protonix Iv) 40 mg IVPUSH Q12H [facility] Last Admin: 06/14/17 08:18 Dose: 40 mg Spironolactone (Aldactone) 25 mg PO DAILY [facility] Last Admin: 06/14/17 08:19 Dose: 25 mg Discontinued Medications Al Hydroxide/Mg Hydroxide 30 (ml/ Lidocaine HCl 15 ml) 0 ml PO ONETIME ONE Stop: 06/11/17 17:45 Last Admin: 06/11/17 18:31 Dose: 45 ml Furosemide (Lasix) 20 mg IVPUSH NOW ONE Stop: 06/13/17 10:16 Last Admin: 06/13/17 10:47 Dose: 20 mg Hydromorphone HCl (Dilaudid) 0.5 mg IVPUSH ONETIME ONE Stop: 06/11/17 21:38 Last Admin: 06/11/17 21:42 Dose: 0.5 mg Sodium Chloride (Normal Saline) 1,000 mls @ 999 mls/hr IV ONETIME ONE Stop: 06/11/17 18:44 Last Admin: 06/11/17 18:28 Dose: 999 mls/hr Sodium Chloride (Normal Saline) 1,000 mls @ 125 mls/hr IV ONETIME ONE Stop: 06/12/17 05:37 Last Admin: 06/11/17 21:56 Dose: 125 mls/hr Dextrose/Sodium Chloride (Dextrose 5%-1/2 Ns) 1,000 mls @ 100 mls/hr IV ASDIRECTED [facility] Last Admin: 06/12/17 00:39 Dose: 75 mls/hr Dextrose/Sodium Chloride (Dextrose 5%-1/2 Ns) 1,000 mls @ 75 mls/hr IV ASDIRECTED [facility] Last Admin: 06/13/17 01:10 Dose: 100 mls/hr Dextrose/Sodium Chloride (Dextrose 5%-1/2 Ns) 1,000 mls @ 50 mls/hr IV ASDIRECTED [facility] Last Admin: 06/13/17 11:16 Dose: 50 mls/hr Iopamidol (Isovue-370 (76%)) 100 ml IVPUSH ONETIME ONE Stop: 06/11/17 20:31 Last Admin: 06/11/17 20:43 Dose: 100 ml Ketorolac Tromethamine (Toradol) 30 mg IVPUSH ONETIME ONE Stop: 06/11/17 17:45 Last Admin: 06/11/17 18:26 Dose: 30 mg Levothyroxine Sodium (Synthroid) 88 mcg PO DAILY@0600 [facility] Magnesium Hydroxide (Milk Of Magnesia) 30 ml PO ONETIME ONE Stop: 06/13/17 20:07 Last Admin: 06/13/17 20:29 Dose: 30 ml Metoprolol Succinate (Toprol Xl) 25 mg PO DAILY [facility] Ondansetron HCl (Zofran) 4 mg IVPUSH ONETIME ONE Stop: 06/11/17 21:52 Last Admin: 06/11/17 21:56 Dose: 4 mg Sodium Chloride (Saline Flush) 10 ml FLUSH ONETIME PRN PRN Reason: Keep Vein Open Last Admin: 06/11/17 20:43 Dose: 10 ml - Exam Quality Assessment: DVT Prophylaxis General: Alert, Oriented, Cooperative HEENT: Pupils Equal, Pupils Reactive, Mucous Membr. Moist/[place] Neck: Supple, Trachea Midline, No JVD Lungs: Clear to Auscultation, Normal Respiratory Effort Cardiovascular: Regular Rate, Regular Rhythm GI/Abdominal Exam: Normal Bowel Sounds, Soft, Non-Tender, No Organomegaly, No Distention, No Abnormal Bruit, No Mass (Female) Exam: Deferred Back Exam: Normal Inspection, Full Range of Motion Extremities: Normal Inspection, Normal Range of Motion, Non-Tender, No Pedal Edema, Normal Capillary Refill Peripheral Pulses: 2+: Radial (L), Radial (R), Posterior Tibial (L), Posterior Tibial (R), Dorsalis Pedis (L), Dorsalis Pedis (R) Skin: Warm, Dry, Intact Neurological: No New Focal Deficit Psy/Mental Status: Alert, Normal Affect, Normal Mood Physical Findings Comments:: Patient is examined while sitting in the chair. No concerns at this point. I discussed with patient advancing her diet as she is only on a liquid diet currently. The plan is to make her a soft diet tonight and full diet tomorrow morning. We're also awaiting the echo and MRCP results. It is suggested she follow-up with a GI specialist in [place]. - Problem List & Annotations (1) Elevated bilirubin SNOMED Code(s): 906776426 Code(s): R17 - UNSPECIFIED JAUNDICE Status: Acute Priority: Medium Current Visit: Yes (2) Elevated liver enzymes SNOMED Code(s): 149414891 Code(s): R74.8 - ABNORMAL LEVELS OF OTHER SERUM ENZYMES Status: Acute Priority: Medium Current Visit: Yes (3) Epigastric abdominal pain SNOMED Code(s): 38923292 Code(s): R10.13 - EPIGASTRIC PAIN Status: Resolved Priority: High Current Visit: Yes (4) Pancreatitis, acute SNOMED Code(s): 157803414 Code(s): K85.90 - ACUTE PANCREATITIS WITHOUT NECROSIS OR INFECTION, UNSP Status: Acute Priority: High Current Visit: Yes Qualifiers: Pancreatitis type: idiopathic Acute pancreatitis complication: no infection or necrosis Qualified Code(s): K85.00 - Idiopathic acute pancreatitis without necrosis or infection (5) Chest pain in adult SNOMED Code(s): 53296148 Code(s): R07.9 - CHEST PAIN, UNSPECIFIED Status: Resolved Priority: High Current Visit: No (6) Non-cardiac chest pain SNOMED Code(s): 203653973 Code(s): R07.89 - OTHER CHEST PAIN Status: Resolved Priority: High Current Visit: No (7) Choledocholithiasis SNOMED Code(s): 145496230 Code(s): K80.50 - CALCULUS OF BILE DUCT W/O CHOLANGITIS OR CHOLECYST W/O OBST Status: Acute Priority: High Current Visit: Yes - Problem List Review Problem List Initiated/Reviewed/Updated: Yes - My Orders Last 24 Hours: My Active Orders 06/14/17 14:18 Consult to Case Management [CONS] Routine Consult to Wire Drawing Machine Tender [CONS] Routine 06/14/17 Dinner Soft Diet [DIET] - Plan Plan:: Impression: Abdominal pain of unclear etiology; abdominal US completed in ED. Hyperbilirubinemia with elevated transaminases Doubt pancreatitis AUTI on day 3 of Rocephin Hx of CAD/CABG with atypical CP Chronic DM, type II HTN HLD Plan: D5 with 0.9 NS, decrease rate, start clear liquids --> advance to soft diet today MRCP, 06/14- small cysts within the spleen and bilateral kidneys. Intrahepatic biliary duct dilation within the liver. Moderately large hiatal hernia. Numerous filling defects within the CHD and CBD compatible with choledocholithiasis. Echo, awaiting results Start Rocephin 1 gm Q 24 hours Protonix IV BID Follow daily labs, repeat lipase Evaluate cardiac source, repeat Tn I negative DVT/GI prophylaxis
--- NOTE | 2017-06-14 15:07 | PCM.SN ---
- Free Text/Narrative Note: 06/14/17 [id number] IV started times 1 attempt 22 guage left hand.[email or web address]
[2017-06-14] MEDS: cefTRIAXone 1 GM in Sodium Chloride 0.9% 100 ML IV SCH (15:34)
[2017-06-15] MEDS: Insulin Aspart 100 Units/ML 3 ML Pen SUBCUT SCH ×3 (01:30→12:27)
[2017-06-15] MEDS: Levothyroxine 88 MCG Tab PO SCH (05:38)
[2017-06-15] MEDS: Spironolactone 25 MG Tab PO SCH (10:08)
[2017-06-15] MEDS: Metoprolol Tartrate 25 MG Tab PO SCH (10:08)
[2017-06-15] MEDS: Enoxaparin 30 MG/0.3 ML Syringe SUBCUT SCH (10:09)
[2017-06-15] MEDS: Pantoprazole 40 MG Vial IVPUSH SCH (10:09)
[2017-06-15] MEDS: Isosorbide Mononitrate 30 MG Tab.ER PO SCH (10:09)
--- NOTE | 2017-06-15 11:46 | PCM.DCSUM1 ---
Discharge Summary - Hospital Course Free Text/Narrative:: 77 year old female with abdominal pain, lipase markedly elevated. CTA (thorax) and abdominal US are unremarkable. Pain started the day of admission; patient reports GB removal. LFTs are elevated in the setting of elevated total bilirubin. The patient reports nausea without vomiting. She denies a change in or GI habits. Additional she complained of chest pain, burning in nature. It is not associated with food or activity. Lipase was found to be extremely elevated. She was subsequently admitted to medical floor for possible pancreatitis as a full code. She was placed nothing by mouth and D5 with NS was started started. Diet was advanced slowly and full diet was consumed today without any increase in abdominal pain. MRCP obtained 06/14/17 shows small cysts within the spleen and bilateral kidneys. Intrahepatic biliary duct dilation within the liver. Moderately large hiatal hernia. Numerous filling defects within the CHD NC DD compatible with choledocholithiasis. An echo was obtained we are still awaiting the results. UA suggested a mild UTI and she was started on Rocephin. Culture returned probable contamination Rocephin was stopped. Lipase returned to normal. Labs look good. Troponins were negative throughout stay. She will need follow-up with GI in [place]. [facility] was contacted by case management and they will reportedly call the patient directly. Results of MRCP and notes were reportedly sent to them. She should follow-up with her primary care provider within 7-10 days or sooner if necessary. She'll be discharged today on her regular home medications. - Discharge Data Discharge Date: 06/15/17 (Admit date:06/11/17) Discharge Disposition: Home, Self-Care 01 Condition: Good - Discharge Diagnosis/Problem(s) (1) Elevated bilirubin SNOMED Code(s): 530746173 ICD Code: R17 - UNSPECIFIED JAUNDICE Status: Acute Priority: Medium Current Visit: Yes (2) Elevated liver enzymes SNOMED Code(s): 953332674 ICD Code: R74.8 - ABNORMAL LEVELS OF OTHER SERUM ENZYMES Status: Acute Priority: Medium Current Visit: Yes (3) Epigastric abdominal pain SNOMED Code(s): 93850641 ICD Code: R10.13 - EPIGASTRIC PAIN Status: Resolved Priority: High Current Visit: Yes (4) Pancreatitis, acute SNOMED Code(s): 395258398 ICD Code: K85.90 - ACUTE PANCREATITIS WITHOUT NECROSIS OR INFECTION, UNSP Status: Resolved Priority: High Current Visit: Yes Qualifiers: Pancreatitis type: idiopathic Acute pancreatitis complication: no infection or necrosis Qualified Code(s): K85.00 - Idiopathic acute pancreatitis without necrosis or infection (5) Choledocholithiasis SNOMED Code(s): 391746882 ICD Code: K80.50 - CALCULUS OF BILE DUCT W/O CHOLANGITIS OR CHOLECYST W/O OBST Status: Acute Priority: High Current Visit: Yes - Patient Summary/Data Consults: Consultations 06/14/17 14:18 Consult to Case Management [CONS] Routine Consult to [employer] [CONS] Routine - Patient Instructions Diet: Heart Healthy Diet, Diabetic Diet Activity: As Tolerated Driving: Do Not Drive Showering/Bathing: May Shower Notify Provider of: Fever, Increased Pain, Nausea and/or Vomiting - Discharge Plan Home Medications: Home Meds Aspirin [Halfprin] 81 mg PO DAILY 02/26/15 [History] Furosemide 40 mg PO DAILY 02/26/15 [History] Insulin Aspart [Novolog Flexpen] 5 unit SQ TIDMEALS 02/26/15 [History] Insulin Glarg,Human.Rec.Analog [LantUS Solostar] 10 units SUBCUT BEDTIME [History] Levothyroxine [Synthroid] 88 mcg PO DAILY 02/26/15 [History] Metoprolol Succinate [Toprol XL] 25 mg PO BID 06/12/16 [History] Nitroglycerin 0.4 mg SL ASDIRECTED PRN #1 bottle 02/08/17 [Rx] Ascorbate Calcium [Vitamin C] 500 mg PO DAILY 06/11/17 [History] Cholecalciferol (Vitamin D3) [Vitamin D3] 5,000 units PO DAILY 06/11/17 [History ] Cyanocobalamin (Vitamin B12) [Vitamin B12] 1,000 mcg PO DAILY 06/11/17 [History] Iron. 65 mg PO DAILY 06/11/17 [History] Isosorbide Mononitrate [Isosorbide Mononitrate ER] 30 mg PO DAILY 06/12/17 [ History] Lisinopril [Zestril] 2.5 mg PO DAILY 06/12/17 [History] Patient Handouts: Acute Pancreatitis, [id number] Forms: ED Department Discharge Referrals: Lianet Tejada NP [Primary Care Provider] - - Discharge Summary/Plan Comment DC Time >30 min.: Yes (45 minutes. ) - General Info Date of Service: 06/15/17 Admission Dx/Problem (Free Text: Pancreatitis Functional Status: Reports: Pain Controlled, Tolerating Diet, Ambulating, Urinating. Denies: New Symptoms - Review of Systems General: Reports: No Symptoms HEENT: Reports: No Symptoms Pulmonary: Reports: No Symptoms Cardiovascular: Reports: No Symptoms Gastrointestinal: Reports: No Symptoms Genitourinary: Reports: No Symptoms Musculoskeletal: Reports: No Symptoms Skin: Reports: No Symptoms Neurological: Reports: No Symptoms Psychiatric: Reports: No Symptoms Systems Review Comment: Advanced to full diet today an reports no complications. - Patient Data Vitals - Most Recent: Last Vital Signs Temp 99.0 F 06/15/17 10:05 Pulse 67 06/15/17 10:08 Resp 20 06/15/17 10:05 BP 137/90 06/15/17 10:09 Pulse Ox 97 06/15/17 10:05 Weight - Most Recent: 227 lb 1.6 oz I&O - Last 24 hours: Intake & Output 06/14/17 06/15/17 06/15/17 22:59 06:59 14:59 Intake Total 1000 400 60 Output Total 1000 300 Balance 0 100 60 Lab Results - Last 24 hrs: Laboratory Results - last 24 hr 06/14/17 06/15/17 06/15/17 Range/Units 16:14 00:50 05:50 WBC (3.98-10.04) K/mm3 RBC (3.98-5.22) M/mm3 Hgb (11.2-15.7) gm/L Hct (34.1-44.9) % MCV (79.4-94.8) fl MCH (25.6-32.2) pg MCHC (32.2-35.5) g/dl RDW Std Deviation (36.4-46.3) fL Plt Count (182-369) K/mm3 MPV (9.4-12.3) fl Neut % (Auto) (34.0-71.1) % Lymph % (Auto) (19.3-51.7) % [place] % (Auto) (4.7-12.5) % Eos % (Auto) (0.7-5.8) Baso % (Auto) (0.1-1.2) % Neut # (Auto) (1.56-6.13) K/mm3 Lymph # (Auto) (1.18-3.74) K/mm3 [place] # (Auto) (0.24-0.36) K/mm3 Eos # (Auto) (0.04-0.36) K/mm3 Baso # (Auto) (0.01-0.08) K/mm3 Sodium 142 (136-145) mEq/L Potassium 3.9 (3.5-5.1) mEq/L Chloride 106 (98-107) mEq/L Carbon Dioxide 25 (21-32) mEq/L Anion Gap 14.9 (5-15) BUN 11 (7-18) mg/dL Creatinine 0.9 (0.55-1.02) mg/dL Est Cr Clr Drug Dosing 44.49 mL/min Estimated GFR (MDRD) > 60 (>60) mL/min BUN/Creatinine Ratio 12.2 L (14-18) Glucose 136 H (83-115) mg/dL POC Glucose 124 H 126 H (83-110) mg/dL Calcium 8.8 (8.5-10.1) mg/dL Total Bilirubin 1.1 H (0.2-1.0) mg/dL AST 51 H (15-37) U/L ALT 189 H (14-59) U/L Alkaline Phosphatase 142 H (46-116) U/L Total Protein 6.2 L (6.4-8.2) g/dl Albumin 2.4 L (3.4-5.0) g/dl Globulin 3.8 gm/dL Albumin/Globulin Ratio 0.6 L (1-2) Lipase 87 (73-393) U/L 06/15/17 06/15/17 Range/Units 05:50 06:49 WBC 5.64 (3.98-10.04) K/mm3 RBC 4.04 (3.98-5.22) M/mm3 Hgb 11.1 L (11.2-15.7) gm/L Hct 34.9 (34.1-44.9) % MCV 86.4 (79.4-94.8) fl MCH 27.5 (25.6-32.2) pg MCHC 31.8 L (32.2-35.5) g/dl RDW Std Deviation 51.4 H (36.4-46.3) fL Plt Count 179 L (182-369) K/mm3 MPV 10.2 (9.4-12.3) fl Neut % (Auto) 65.5 (34.0-71.1) % Lymph % (Auto) 22.2 (19.3-51.7) % [place] % (Auto) 9.6 (4.7-12.5) % Eos % (Auto) 2.3 (0.7-5.8) Baso % (Auto) 0.2 (0.1-1.2) % Neut # (Auto) 3.70 (1.56-6.13) K/mm3 Lymph # (Auto) 1.25 (1.18-3.74) K/mm3 [place] # (Auto) 0.54 H (0.24-0.36) K/mm3 Eos # (Auto) 0.13 (0.04-0.36) K/mm3 Baso # (Auto) 0.01 (0.01-0.08) K/mm3 Sodium (136-145) mEq/L Potassium (3.5-5.1) mEq/L Chloride (98-107) mEq/L Carbon Dioxide (21-32) mEq/L Anion Gap (5-15) BUN (7-18) mg/dL Creatinine (0.55-1.02) mg/dL Est Cr Clr Drug Dosing mL/min Estimated GFR (MDRD) (>60) mL/min BUN/Creatinine Ratio (14-18) Glucose (83-115) mg/dL POC Glucose 134 H (83-110) mg/dL Calcium (8.5-10.1) mg/dL Total Bilirubin (0.2-1.0) mg/dL AST (15-37) U/L ALT (14-59) U/L Alkaline Phosphatase (46-116) U/L Total Protein (6.4-8.2) g/dl Albumin (3.4-5.0) g/dl Globulin gm/dL Albumin/Globulin Ratio (1-2) Lipase (73-393) U/L Med Orders - Current: Current Medications Enoxaparin Sodium (Lovenox) 30 mg SUBCUT DAILY [facility] Last Admin: 06/15/17 10:09 Dose: 30 mg Hydralazine HCl (Apresoline) 20 mg IM Q6H PRN PRN Reason: Hypertension Hydromorphone HCl (Dilaudid) 0.5 mg IVPUSH Q4H PRN PRN Reason: Pain Ceftriaxone Sodium 1 gm/ (Sodium Chloride) 100 mls @ 200 mls/hr IV Q24H [facility] Last Admin: 06/14/17 15:34 Dose: 200 mls/hr Insulin Aspart (Novolog) 0 unit SUBCUT Q6H [facility] PRN Reason: Protocol Last Admin: 06/15/17 07:06 Dose: Not Given Isosorbide Mononitrate (Imdur) 30 mg PO DAILY [facility] Last Admin: 06/15/17 10:09 Dose: 30 mg Levothyroxine Sodium (Synthroid) 88 mcg PO ACBREAKFAST [facility] Last Admin: 06/15/17 05:38 Dose: 88 mcg Metoprolol Tartrate (Lopressor) 12.5 mg PO Q12HR [facility] Last Admin: 06/15/17 10:08 Dose: 12.5 mg Nitroglycerin (Nitrostat) 0.4 mg SL ASDIRECTED PRN PRN Reason: Chest Pain Pantoprazole Sodium (Protonix Iv) 40 mg IVPUSH Q12H [facility] Last Admin: 06/15/17 10:09 Dose: 40 mg Spironolactone (Aldactone) 25 mg PO DAILY [facility] Last Admin: 06/15/17 10:08 Dose: 25 mg Discontinued Medications Al Hydroxide/Mg Hydroxide 30 (ml/ Lidocaine HCl 15 ml) 0 ml PO ONETIME ONE Stop: 06/11/17 17:45 Last Admin: 06/11/17 18:31 Dose: 45 ml Furosemide (Lasix) 20 mg IVPUSH NOW ONE Stop: 06/13/17 10:16 Last Admin: 06/13/17 10:47 Dose: 20 mg Hydromorphone HCl (Dilaudid) 0.5 mg IVPUSH ONETIME ONE Stop: 06/11/17 21:38 Last Admin: 06/11/17 21:42 Dose: 0.5 mg Sodium Chloride (Normal Saline) 1,000 mls @ 999 mls/hr IV ONETIME ONE Stop: 06/11/17 18:44 Last Admin: 06/11/17 18:28 Dose: 999 mls/hr Sodium Chloride (Normal Saline) 1,000 mls @ 125 mls/hr IV ONETIME ONE Stop: 06/12/17 05:37 Last Admin: 06/11/17 21:56 Dose: 125 mls/hr Dextrose/Sodium Chloride (Dextrose 5%-1/2 Ns) 1,000 mls @ 100 mls/hr IV ASDIRECTED [facility] Last Admin: 06/12/17 00:39 Dose: 75 mls/hr Dextrose/Sodium Chloride (Dextrose 5%-1/2 Ns) 1,000 mls @ 75 mls/hr IV ASDIRECTED [facility] Last Admin: 06/13/17 01:10 Dose: 100 mls/hr Dextrose/Sodium Chloride (Dextrose 5%-1/2 Ns) 1,000 mls @ 50 mls/hr IV ASDIRECTED [facility] Last Admin: 06/13/17 11:16 Dose: 50 mls/hr Iopamidol (Isovue-370 (76%)) 100 ml IVPUSH ONETIME ONE Stop: 06/11/17 20:31 Last Admin: 06/11/17 20:43 Dose: 100 ml Ketorolac Tromethamine (Toradol) 30 mg IVPUSH ONETIME ONE Stop: 06/11/17 17:45 Last Admin: 06/11/17 18:26 Dose: 30 mg Levothyroxine Sodium (Synthroid) 88 mcg PO DAILY@0600 [facility] Magnesium Hydroxide (Milk Of Magnesia) 30 ml PO ONETIME ONE Stop: 06/13/17 20:07 Last Admin: 06/13/17 20:29 Dose: 30 ml Metoprolol Succinate (Toprol Xl) 25 mg PO DAILY [facility] Ondansetron HCl (Zofran) 4 mg IVPUSH ONETIME ONE Stop: 06/11/17 21:52 Last Admin: 06/11/17 21:56 Dose: 4 mg Sodium Chloride (Saline Flush) 10 ml FLUSH ONETIME PRN PRN Reason: Keep Vein Open Last Admin: 06/11/17 20:43 Dose: 10 ml - Exam Quality Assessment: Reports: DVT Prophylaxis General: Reports: Alert, Oriented, Cooperative HEENT: Reports: Pupils Equal, Pupils Reactive, Mucous Membr. Moist/[place] Neck: Reports: Supple, Trachea Midline, No JVD Lungs: Reports: Clear to Auscultation, Normal Respiratory Effort Cardiovascular: Reports: Regular Rate, Regular Rhythm GI/Abdominal Exam: Normal Bowel Sounds, Soft, Non-Tender, No Organomegaly, No Distention, No Mass (Female) Exam: Deferred Rectal (Female) Exam: Deferred Back Exam: Reports: Normal Inspection, Full Range of Motion Extremities: Normal Inspection, Normal Range of Motion, Non-Tender, Normal Capillary Refill, Pedal Edema (trace ) Skin: Reports: Warm, Dry, Intact Neurological: Reports: No New Focal Deficit Psy/Mental Status: Reports: Alert, Normal Affect, Normal Mood Physical Findings Comments:: Patient is recovering well. No concerns noted. As discussed, she will need to follow up with GI. *Q Meaningful Use (DIS) - VTE *Q VTE Criteria *Q: - Stroke *Q Stroke Criteria *Q: - AMI *Q AMI Criteria *Q:
[2017-06-15] MEDS ORDERED: Diphtheria,Pertussis(Acell),Tetanus Vaccine 0.5 ML SDV IM ONE (12:33)
[2017-06-15 12:58] VITALS: BP 138/85
== END 2017-06-15 13:35 | disposition home or self-care (01) | DRG 439 ==
LOC: JD.ED 16:50 → UNDOADMIN 23:24 → JD.MS 23:24
PROVIDERS: ADMIT Internal Medicine Cardiovascular Disease; ATTEND Internal Medicine Cardiovascular Disease
PROC: 3E0234Z Introduction of Serum, Toxoid and Vaccine into Muscle, Percutaneous Approach (ICD-10-PCS; principal; 2017-06-15)
DX: K85.00 Idiopathic acute pancreatitis without necrosis or infection (principal); R17 Unspecified jaundice; E78.00 Pure hypercholesterolemia, unspecified; K59.09 Other constipation; I25.810 Atherosclerosis of coronary artery bypass graft(s) without angina pectoris; K90.9 Intestinal malabsorption, unspecified; K80.50 Calculus of bile duct without cholangitis or cholecystitis without obstruction; R74.8 Abnormal levels of other serum enzymes; I10 Essential (primary) hypertension; E78.5 Hyperlipidemia, unspecified; Z23 Encounter for immunization; Z90.49 Acquired absence of other specified parts of digestive tract; K44.9 Diaphragmatic hernia without obstruction or gangrene; R07.9 Chest pain, unspecified; Z91.09 Other allergy status, other than to drugs and biological substances; Z79.82 Long term (current) use of aspirin; Z79.4 Long term (current) use of insulin; Z79.899 Other long term (current) drug therapy; E11.9 Type 2 diabetes mellitus without complications; H54.7 Unspecified visual loss
CPT/HCPCS: 71275; 76705; 96361; 99285; 93005; 96374; 96375; 85025; 85379; 81001; 36415; 80053; 84484; 83690; 86140; 87086; Q9967; J1885; A9270 ×2; J7040 ×2; J7050; J2405; J1170; 74181; 74181-26; 80048; 80061; 82248; 82550; 82962; 83735; 83880; 84443; 85027; 90471; 90715; 93306; 96360; C9113; J0696; J1650; J1815-GY; J7030; J7042

== ENCOUNTER 2017-12-08 10:18 | Emergency (ER) | payer MEDICARE, MEDICAID ==
[2017-12-08 11:03] VITALS: BP 133/59
[2017-12-08] MEDS ORDERED: Sodium Chloride 0.9% 10 ML Syringe FLUSH PRN (11:21)
[2017-12-08] MEDS ORDERED: Acetaminophen 325 MG Tab PO ONE (11:21)
--- NOTE | 2017-12-08 11:25 | EDM.PDOC ---
ED HPI GENERAL MEDICAL PROBLEM - General Chief Complaint: General Stated Complaint: BODY ACHES NAUSEA AND CHILLS Time Seen by Provider: 12/08/17 11:13 Source of Information: Reports: Patient History Limitations: Reports: No Limitations - History of Present Illness INITIAL COMMENTS - FREE TEXT/NARRATIVE: 77-year-old female presents for evaluation and treatment of body aches, chills and nausea. Patient reports her symptoms started today. No fevers at home but she was found to have a temp of 101.8 upon arrival to the ER. Additionally, she is complaining of headaches, bodies, nausea, chills and a little bit of a cough. She is also complaining of leg pain from her right hip to her right knee ; anterior. This is new. No dysuria, vomiting, abdominal pain or diarrhea. She has constipation and attributes this to her iron supplementation she is on. No ill contacts. No influenza vaccine this year. Primary care provider is Deena Tejada. Onset: Today Right Feet Pain Score (Numeric/FACES): 10 - Related Data Allergies Allergy/AdvReac Type Severity Reaction Status Date / Time adhesive tape Allergy Rash Verified 12/08/17 11:00 aloe vera Allergy Rash Verified 12/08/17 10:59 band-aids Allergy Rash Uncoded 12/08/17 10:59 Home Meds: Home Meds Furosemide 40 mg PO DAILY 02/26/15 [History] Insulin Aspart [Novolog Flexpen] 5 unit SQ TIDMEALS 02/26/15 [History] Insulin Glarg,Human.Rec.Analog [LantUS Solostar] 10 units SUBCUT BEDTIME [History] Levothyroxine [Synthroid] 88 mcg PO DAILY 02/26/15 [History] Nitroglycerin 0.4 mg SL ASDIRECTED PRN #1 bottle 02/08/17 [Rx] Isosorbide Mononitrate [Isosorbide Mononitrate ER] 30 mg PO DAILY 06/12/17 [ History] Lisinopril [Zestril] 2.5 mg PO DAILY 06/12/17 [History] Cephalexin 500 mg PO BID #14 capsule 12/08/17 [Rx] Metoprolol Tartrate [Lopressor] 25 mg PO BID 12/08/17 [History] Past Medical History HEENT History: Reports: Impaired Vision, Other (See Below) Other HEENT History: wears glasses Cardiovascular History: Reports: High Cholesterol, Hypertension, [place] Gastrointestinal History: Reports: Chronic Constipation RN HOSPITAL History: Reports: Endocrine/Metabolic History: Reports: Diabetes, Type II - Past Surgical History HEENT Surgical History: Reports: Cataract Surgery Cardiovascular Surgical History: Reports: Other (See Below) Other Cardiovascular Surgeries/Procedures: open heart surgery GI Surgical History: Reports: None Endocrine Surgical History: Reports: None Dermatological Surgical History: Reports: None Social & Family History - Family History Family Medical History: Noncontributory - Tobacco Use Smoking Status *Q: Never Smoker Second Hand Smoke Exposure: No - Caffeine Use Caffeine Use: Reports: Coffee Other Caffeine Use: 2 cups of coffee every day - Recreational Drug Use Recreational Drug Use: No ED ROS GENERAL - Review of Systems Review Of Systems: See Below Constitutional: Reports: Chills, Malaise. Denies: Fever Respiratory: Reports: Cough. Denies: Shortness of Breath Cardiovascular: Denies: Chest Pain GI/Abdominal: Reports: Constipation, Nausea. Denies: Abdominal Pain, Diarrhea, Vomiting : Denies: Dysuria Musculoskeletal: Reports: Leg Pain (right leg) Neurological: Reports: Headache ED EXAM, GENERAL - Physical Exam Exam: See Below Exam Limited By: No Limitations General Appearance: Alert, WD/WN, No Apparent Distress, Obese Ears: Normal External Exam Nose: Normal Inspection Throat/Mouth: Normal Inspection, Normal Lips, Normal Voice, No Airway Compromise Neck: Normal Inspection Respiratory/Chest: No Respiratory Distress, Lungs Clear, Normal Breath Sounds Cardiovascular: Normal Peripheral Pulses, Regular Rate, Rhythm, No Murmur Peripheral Pulses: 2+: Radial (L), Radial (R), Posterior Tibial (L), Posterior Tibial (R), Dorsalis Pedis (L), Dorsalis Pedis (R) GI/Abdominal: Soft, Non-Tender Extremities: Normal Inspection, Non-Tender, Normal Capillary Refill. No: Redness Neurological: Alert, Oriented, Normal Cognition Psychiatric: Normal Affect, Normal Mood Skin Exam: Warm, Dry, Normal Color Course - Vital Signs Last Recorded V/S: Last Vital Signs Temp 37.3 C 12/08/17 11:47 Pulse 81 12/08/17 11:00 Resp 18 12/08/17 11:00 BP 133/59 L 12/08/17 11:00 Pulse Ox 96 12/08/17 11:00 - Orders/Labs/Meds Orders: Active Orders 24 hr Category Date Time Status Cardiac Monitoring [RC] . DIRECTED Care 12/08/17 11:21 Active Peripheral IV Care [RC] . DIRECTED Care 12/08/17 11:22 Active CULTURE BLOOD [BC] Stat Lab 12/08/17 11:45 Received CULTURE BLOOD [BC] Stat Lab 12/08/17 11:58 Received CULTURE URINE [RM] Stat Lab 12/08/17 11:32 Received INFLUENZA A+B AG SCREEN [RM] Stat Lab 12/08/17 11:48 Ordered UA W/MICROSCOPIC [URIN] Stat Lab 12/08/17 11:32 Ordered Sodium Chloride 0.9% [Saline Flush] Med 12/08/17 11:21 Active 10 ml FLUSH ASDIRECTED PRN Blood Culture x2 Reflex Set [OM.PC] Stat Oth 12/08/17 11:21 Ordered Peripheral IV Insertion Adult [OM.PC] Routine Oth 12/08/17 11:21 Ordered Medication Orders Sodium Chloride (Saline Flush) 10 ml FLUSH ASDIRECTED PRN PRN Reason: Keep Vein Open Last Admin: 12/08/17 11:48 Dose: 10 ml Labs: Laboratory Tests 12/08/17 12/08/17 12/08/17 Range/Units 11:32 11:45 11:45 WBC 9.65 (3.98-10.04) K/mm3 RBC 4.70 (3.98-5.22) M/mm3 Hgb 12.9 (11.2-15.7) gm/L Hct 41.0 (34.1-44.9) % MCV 87.2 (79.4-94.8) fl MCH 27.4 (25.6-32.2) pg MCHC 31.5 L (32.2-35.5) g/dl RDW Std Deviation 50.7 H (36.4-46.3) fL Plt Count 216 (182-369) K/mm3 MPV 9.3 L (9.4-12.3) fl Neutrophils % (Manual) 85 H (40-60) % Band Neutrophils % 0 (0-10) % Lymphocytes % (Manual) 13 L (20-40) % Atypical Lymphs % 0 % Monocytes % (Manual) 1 L (2-10) % Eosinophils % (Manual) 1 (0.7-5.8) % Basophils % (Manual) 0 L (0.1-1.2) Platelet Estimate Adequate RBC Morph Comment Normal Sodium 141 (136-145) mEq/L Potassium 4.1 (3.5-5.1) mEq/L Chloride 103 (98-107) mEq/L Carbon Dioxide 30 (21-32) mEq/L Anion Gap 12.1 (5-15) BUN 17 (7-18) mg/dL Creatinine 1.1 H (0.55-1.02) mg/dL Est Cr Clr Drug Dosing 37.93 mL/min Estimated GFR (MDRD) 48 (>60) mL/min BUN/Creatinine Ratio 15.5 (14-18) Glucose 86 (83-115) mg/dL POC Glucose (83-110) mg/dL Lactic Acid (0.4-2.0) mmol/L Calcium 9.8 (8.5-10.1) mg/dL Total Bilirubin 1.0 (0.2-1.0) mg/dL AST 29 (15-37) U/L ALT 26 (14-59) U/L Alkaline Phosphatase 77 (46-116) U/L C-Reactive Protein 2.2 H* (<1.0) mg/dL Total Protein 7.3 (6.4-8.2) g/dl Albumin 3.5 (3.4-5.0) g/dl Globulin 3.8 gm/dL Albumin/Globulin Ratio 0.9 L (1-2) Urine Color Yellow (Yellow) Urine Appearance Clear (Clear) Urine pH 7.5 (5.0-8.0) Ur Specific [place] 1.020 (1.005-1.030) Urine Protein Negative (Negative) Urine Glucose (UA) Negative (Negative) Urine Ketones Negative (Negative) Urine Occult Blood Negative (Negative) Urine Nitrite Negative (Negative) Urine Bilirubin Negative (Negative) Urine Urobilinogen 0.2 (0.2-1.0) Ur Leukocyte Esterase Trace H (Negative) Urine RBC Not seen (0-5) /hpf Urine WBC 0-5 (0-5) /hpf Ur Epithelial Cells 0-5 (0-5) /hpf Urine Bacteria Few (FEW) /hpf Urine Mucus Not seen (FEW) /hpf 12/08/17 12/08/17 Range/Units 11:45 13:31 WBC (3.98-10.04) K/mm3 RBC (3.98-5.22) M/mm3 Hgb (11.2-15.7) gm/L Hct (34.1-44.9) % MCV (79.4-94.8) fl MCH (25.6-32.2) pg MCHC (32.2-35.5) g/dl RDW Std Deviation (36.4-46.3) fL Plt Count (182-369) K/mm3 MPV (9.4-12.3) fl Neutrophils % (Manual) (40-60) % Band Neutrophils % (0-10) % Lymphocytes % (Manual) (20-40) % Atypical Lymphs % % Monocytes % (Manual) (2-10) % Eosinophils % (Manual) (0.7-5.8) % Basophils % (Manual) (0.1-1.2) Platelet Estimate RBC Morph Comment Sodium (136-145) mEq/L Potassium (3.5-5.1) mEq/L Chloride (98-107) mEq/L Carbon Dioxide (21-32) mEq/L Anion Gap (5-15) BUN (7-18) mg/dL Creatinine (0.55-1.02) mg/dL Est Cr Clr Drug Dosing mL/min Estimated GFR (MDRD) (>60) mL/min BUN/Creatinine Ratio (14-18) Glucose (83-115) mg/dL POC Glucose 109 (83-110) mg/dL Lactic Acid 1.2 (0.4-2.0) mmol/L Calcium (8.5-10.1) mg/dL Total Bilirubin (0.2-1.0) mg/dL AST (15-37) U/L ALT (14-59) U/L Alkaline Phosphatase (46-116) U/L C-Reactive Protein (<1.0) mg/dL Total Protein (6.4-8.2) g/dl Albumin (3.4-5.0) g/dl Globulin gm/dL Albumin/Globulin Ratio (1-2) Urine Color (Yellow) Urine Appearance (Clear) Urine pH (5.0-8.0) Ur Specific [place] (1.005-1.030) Urine Protein (Negative) Urine Glucose (UA) (Negative) Urine Ketones (Negative) Urine Occult Blood (Negative) Urine Nitrite (Negative) Urine Bilirubin (Negative) Urine Urobilinogen (0.2-1.0) Ur Leukocyte Esterase (Negative) Urine RBC (0-5) /hpf Urine WBC (0-5) /hpf Ur Epithelial Cells (0-5) /hpf Urine Bacteria (FEW) /hpf Urine Mucus (FEW) /hpf Meds: Medications Generic Name Dose Route Start Last Admin Trade Name Freq PRN Reason Stop Dose Admin Sodium Chloride 10 ml 12/08/17 11:21 12/08/17 11:48 Saline Flush FLUSH 10 ml ASDIRECTED PRN Administration Keep Vein Open Discontinued Medications Generic Name Dose Route Start Last Admin Trade Name Freq PRN Reason Stop Dose Admin Acetaminophen 650 mg 12/08/17 11:21 12/08/17 11:47 Tylenol PO 12/08/17 11:22 650 mg NOW ONE Administration - Radiology Interpretation Free Text/Narrative:: Chest: Two views of the chest were obtained. Comparison: Prior chest x-ray of 02/08/17. Heart is enlarged. No acute pulmonary vascular congestion is seen. No abnormal parenchymal densities are seen within either lung. Previous sternotomy is noted. Diffuse calcification within the anterior longitudinal ligament is seen. Impression: 1. Incidental findings. Nothing acute is appreciated on two-view chest x-ray. - Re-Assessments/Exams Free Text/Narrative Re-Assessment/Exam: 12/08/17 14:00 Checked on the patient. She is eating dinner. Feels improved. Plan will be to treat her for urinary tract infection. Her urine has been sent for culture. I will have her follow-up with her primary care provider for recheck of her symptoms early next week. She is instructed to return to the ER for symptoms change or worsen. Discharge instructions as documented. Departure - Departure Time of Disposition: 14:31 Disposition: Home, Self-Care 01 Condition: Fair Clinical Impression: UTI, Urinary tract infectious disease - Discharge Information Prescriptions: Cephalexin 500 mg PO BID #14 capsule Instructions: Urinary Tract Infection, Adult, [id number] Referrals: Lianet Tejada NP [Primary Care Provider] - Forms: ED Department Discharge Additional Instructions: Keflex 1 Twice a day for 7 days. This has been electronically sent to pending sale to [facility]. Rest. make sure you are drinking plenty of fluids. [id number] Tylenol or Motrin as needed for additional pain relief. Follow-up with your primary care provider early next week for recheck of your symptoms. Please return to the ER if your symptoms change or worsen. - My Orders Last 24 Hours: My Active Orders 12/08/17 11:21 Cardiac Monitoring [RC] . DIRECTED Sodium Chloride 0.9% [Saline Flush] 10 ml FLUSH ASDIRECTED PRN Blood Culture x2 Reflex Set [OM.PC] Stat Peripheral IV Insertion Adult [OM.PC] Routine 12/08/17 11:22 Peripheral IV Care [RC] . DIRECTED 12/08/17 11:32 CULTURE URINE [RM] Stat UA W/MICROSCOPIC [URIN] Stat 12/08/17 11:45 CULTURE BLOOD [BC] Stat 12/08/17 11:48 INFLUENZA A+B AG SCREEN [RM] Stat 12/08/17 11:58 CULTURE BLOOD [BC] Stat - Assessment/Plan Last 24 Hours: My Active Orders 12/08/17 11:21 Cardiac Monitoring [RC] . DIRECTED Sodium Chloride 0.9% [Saline Flush] 10 ml FLUSH ASDIRECTED PRN Blood Culture x2 Reflex Set [OM.PC] Stat Peripheral IV Insertion Adult [OM.PC] Routine 12/08/17 11:22 Peripheral IV Care [RC] . DIRECTED 12/08/17 11:32 CULTURE URINE [RM] Stat UA W/MICROSCOPIC [URIN] Stat 12/08/17 11:45 CULTURE BLOOD [BC] Stat 12/08/17 11:48 INFLUENZA A+B AG SCREEN [RM] Stat 12/08/17 11:58 CULTURE BLOOD [BC] Stat
--- NOTE | 2017-12-08 12:53 | CR ---
Chest: Two views of the chest were obtained. Comparison: Prior chest x-ray of 02/08/17. Heart is enlarged. No acute pulmonary vascular congestion is seen. No abnormal parenchymal densities are seen within either lung. Previous sternotomy is noted. Diffuse calcification within the anterior longitudinal ligament is seen. Impression: 1. Incidental findings. Nothing acute is appreciated on two-view chest x-ray. Diagnostic code #2
--- NOTE | 2017-12-08 14:29 | US ---
Right lower extremity deep venous ultrasound: Duplex and color flow imaging was obtained of the right common femoral, superficial femoral, popliteal, posterior tibial and peroneal veins as well as saphenous vein. Left common femoral vein was also evaluated. Technologist's note: Suboptimal exam due to swelling adjacent calcified arteries Findings: Normal phasic flow, augmentation and compression is seen. Impression: 1. No evidence of deep venous thrombosis within the right lower extremity or within the left common femoral vein. Diagnostic code #1
== END 2017-12-08 15:21 | disposition home or self-care (01) ==
LOC: JD.ED 10:18
DX: N39.0 Urinary tract infection, site not specified (principal); E11.9 Type 2 diabetes mellitus without complications; I10 Essential (primary) hypertension; I25.2 Old myocardial infarction; E78.00 Pure hypercholesterolemia, unspecified; Z79.4 Long term (current) use of insulin; Z79.899 Other long term (current) drug therapy; Z91.09 Other allergy status, other than to drugs and biological substances
CPT/HCPCS: 36415; 71046; 80053; 81001; 82962; 83605; 85025; 86140; 87040; 87086; 87804; 93971; 99284; A9270; J7050; 99283

== ENCOUNTER 2018-03-08 18:27 | Emergency (ER) | payer MEDICARE, OTHER ==
[2018-03-08 18:37] VITALS: BP 155/67
--- NOTE | 2018-03-08 19:10 | EDM.PDOC ---
ED HPI GENERAL MEDICAL PROBLEM - General Chief Complaint: Headache Stated Complaint: HEADACHE Time Seen by Provider: 03/08/18 19:00 - History of Present Illness INITIAL COMMENTS - FREE TEXT/NARRATIVE: 75 year old female presents emergency room with a headache. This headache really got worse after the of February when she's been a lot looking up however this headache is been going on for about a month or so. Seems to be associated with some neck pain her chiropractor says he has nothing else to offer for her neck discomfort. Patient mostly has associated head pain and neck tightness does not have pins and needles in her arms or significant arm weakness that bothers her on a regular basis. She has not had any recent trauma to her head neck. Past medical history significant for type 2 diabetes, hypothyroidism and some angina. Recently she hasn't had problems with chest pain chest pressure breathing difficulties or shortness of breath again she's had no recent trauma to the head or neck region Head Pain Score (Numeric/FACES): 3 - Related Data Allergies Allergy/AdvReac Type Severity Reaction Status Date / Time adhesive tape Allergy Rash Verified 03/08/18 18:34 aloe vera Allergy Rash Verified 03/08/18 18:34 band-aids Allergy Rash Uncoded 03/08/18 18:34 Home Meds: Home Meds Furosemide 40 mg PO DAILY 02/26/15 [History] Insulin Aspart [Novolog Flexpen] 5 unit SQ TIDMEALS 02/26/15 [History] Insulin Glarg,Human.Rec.Analog [LantUS Solostar] 10 units SUBCUT BEDTIME [History] Levothyroxine [Synthroid] 88 mcg PO DAILY 02/26/15 [History] Nitroglycerin 0.4 mg SL ASDIRECTED PRN #1 bottle 02/08/17 [Rx] Isosorbide Mononitrate [Isosorbide Mononitrate ER] 30 mg PO DAILY 06/12/17 [ History] Lisinopril [Zestril] 2.5 mg PO DAILY 06/12/17 [History] Metoprolol Tartrate [Lopressor] 25 mg PO BID 12/08/17 [History] Ascorbate Calcium [Vitamin C] 500 mg PO DAILY 03/08/18 [History] Aspirin [Lo-Dose Aspirin EC] 81 mg PO DAILY 03/08/18 [History] Cholecalciferol (Vitamin D3) [Vitamin D3] 5,000 unit PO DAILY 03/08/18 [History] Cyanocobalamin (Vitamin B-12) [Vitamin B-12] 1,000 mcg PO DAILY 03/08/18 [ History] Cyclobenzaprine [Flexeril] 5 mg PO Q24H #15 tab 03/08/18 [Rx] Iron. 65 mg PO DAILY 03/08/18 [History] Past Medical History HEENT History: Reports: Impaired Vision, Other (See Below) Other HEENT History: wears glasses Cardiovascular History: Reports: High Cholesterol, Hypertension, [place] Gastrointestinal History: Reports: Chronic Constipation THERAPIST RRT History: Reports: Endocrine/Metabolic History: Reports: Diabetes, Type II - Past Surgical History HEENT Surgical History: Reports: Cataract Surgery Cardiovascular Surgical History: Reports: Other (See Below) Other Cardiovascular Surgeries/Procedures: open heart surgery GI Surgical History: Reports: None Endocrine Surgical History: Reports: None Dermatological Surgical History: Reports: None Social & Family History - Family History Family Medical History: Noncontributory - Tobacco Use Smoking Status *Q: Never Smoker - Caffeine Use Caffeine Use: Reports: Coffee Other Caffeine Use: 2 cups of coffee every day - Recreational Drug Use Recreational Drug Use: No ED ROS GENERAL - Review of Systems Review Of Systems: See Below Constitutional: Reports: No Symptoms, Fever, Chills, Malaise, Weakness HEENT: Reports: No Symptoms, Contact Lenses, Dental Pain, Ear Discharge Respiratory: Reports: No Symptoms, Shortness of Breath, Wheezing Cardiovascular: Reports: No Symptoms, Edema. Denies: Chest Pain, Blood Pressure Problem, Dyspnea on Exertion Endocrine: Reports: No Symptoms GI/Abdominal: Reports: No Symptoms. Denies: Constipation, Diarrhea, Nausea, Vomiting : Reports: No Symptoms Skin: Reports: No Symptoms Neurological: Reports: No Symptoms - Physical Exam Exam: See Below Exam Limited By: No Limitations General Appearance: Alert, No Apparent Distress Eye Exam: Bilateral Eye: Normal Inspection Ears: Normal External Exam, Normal Canal, Hearing Grossly Normal, Normal TMs Nose: Normal Inspection, Normal Mucosa, No Blood Throat/Mouth: Normal Inspection, Normal Lips, Normal Teeth, Normal Gums, Normal Oropharynx, Normal Voice, No Airway Compromise Head Exam: Atraumatic, Normocephalic Neck: Normal Inspection, Supple, Non-Tender, Full Range of Motion. No: Lymphadenopathy (L), Lymphadenopathy (R), Other ( muscle tightness at the base of the skull palpation of this seems to mimic her headache) Respiratory/Chest: No Respiratory Distress, Lungs Clear, Normal Breath Sounds Cardiovascular: Normal Peripheral Pulses, Regular Rate, Rhythm, No Edema GI/Abdominal: Normal Bowel Sounds, Soft, Non-Tender (Female) Exam: Normal External Exam, Normal Speculum Exam Neuro Exam (Abbreviated): Alert, Oriented, CN II-XII Intact, Normal Cognition, No Motor/Sensory Deficits Course - Vital Signs Text/Narrative:: At this point sounds like patient is muscle tension headaches that are contributing to her pain at this point she'll be started on Tylenol And low- dose muscle relaxants Last Recorded V/S: Last Vital Signs Temp 36.8 C 03/08/18 18:34 Pulse 77 03/08/18 18:34 Resp BP 155/67 H 03/08/18 18:34 Pulse Ox 96 03/08/18 18:34 Departure - Departure Time of Disposition: 19:30 Disposition: Home, Self-Care 01 Clinical Impression: Muscle tension headache - Discharge Information Prescriptions: Cyclobenzaprine [Flexeril] 5 mg PO Q24H #15 tab Referrals: Lianet Tejada NP [Primary Care Provider] - Additional Instructions: Return to the emergency room with any questions or problems. Take Tylenol 650 mg 4 times a day. Start the muscle relaxant, Flexeril 5 mg only at bedtime allow 12 hours after using this medication before driving or returning to work. Follow-up in the clinic in 1 week
== END 2018-03-08 19:40 | disposition home or self-care (01) ==
LOC: JD.ED 18:27
DX: G44.209 Tension-type headache, unspecified, not intractable (principal); E78.00 Pure hypercholesterolemia, unspecified; I10 Essential (primary) hypertension; I25.2 Old myocardial infarction; E11.9 Type 2 diabetes mellitus without complications; Z91.048 Other nonmedicinal substance allergy status; Z79.4 Long term (current) use of insulin; Z79.899 Other long term (current) drug therapy
CPT/HCPCS: 99283; 99284

== ENCOUNTER 2019-05-27 19:02 | Emergency (ER) | payer MEDICARE, MEDICAID ==
[2019-05-27] MEDS ORDERED: Ondansetron 4 MG/2 ML SDV IVPUSH ONE (19:22)
[2019-05-27] MEDS ORDERED: HYDROmorphone 0.5 MG/0.5 ML Syringe IVPUSH ONE ×3 (19:22→23:40)
--- NOTE | 2019-05-27 19:34 | EDM.PDOC ---
ED HPI GENERAL MEDICAL PROBLEM - General Chief Complaint: Chest Pain Stated Complaint: possible heart attack Time Seen by Provider: 05/27/19 19:15 Source of Information: Reports: Patient, Family History Limitations: Reports: No Limitations - History of Present Illness INITIAL COMMENTS - FREE TEXT/NARRATIVE: This is an 79-year-old female. Onset around 2 PM with epigastric pain and stomach pain and also chest pain. She says is due to acid. He tried to eat some bread and crackers but vomited back up around 6 PM. This is continue to bother her and get worse so she comes to the ER for evaluation. 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 She states she is in terminal pain but she does not look in acute distress. Her family thinks she might have H. pylori because one of them did and they had constant reflux problems. She denies any fever or chills. She denies any cough or congestion. She's had no diarrhea. She did try Gas-X at home and took 4 regular aspirins at home. Chest Pain Score (Numeric/FACES): 10 - Related Data Allergies Allergy/AdvReac Type Severity Reaction Status Date / Time adhesive tape Allergy Rash Verified 05/27/19 19:08 aloe vera Allergy Rash Verified 05/27/19 19:08 band-aids Allergy Rash Uncoded 05/27/19 19:08 Home Meds: Home Meds Furosemide 40 mg PO DAILY 02/26/15 [History] Insulin Aspart [Novolog Flexpen] 5 unit SQ TIDMEALS 02/26/15 [History] Insulin Glarg,Human.Rec.Analog [LantUS Solostar] 10 units SUBCUT BEDTIME [History] Levothyroxine [Synthroid] 88 mcg PO DAILY 02/26/15 [History] Nitroglycerin 0.4 mg SL ASDIRECTED PRN #1 bottle 02/08/17 [Rx] Isosorbide Mononitrate [Isosorbide Mononitrate ER] 30 mg PO DAILY 06/12/17 [ History] Lisinopril [Zestril] 2.5 mg PO DAILY 06/12/17 [History] Metoprolol Tartrate [Lopressor] 25 mg PO BID 12/08/17 [History] Ascorbate Calcium [Vitamin C] 500 mg PO DAILY 03/08/18 [History] Aspirin [Lo-Dose Aspirin EC] 81 mg PO DAILY 03/08/18 [History] Cholecalciferol (Vitamin D3) [Vitamin D3] 5,000 unit PO DAILY 03/08/18 [History] Cyanocobalamin (Vitamin B-12) [Vitamin B-12] 1,000 mcg PO DAILY 03/08/18 [ History] Cyclobenzaprine [Flexeril] 5 mg PO Q24H #15 tab 03/08/18 [Rx] Iron. 65 mg PO DAILY 03/08/18 [History] Past Medical History HEENT History: Reports: Impaired Vision, Other (See Below) Other HEENT History: wears glasses Cardiovascular History: Reports: High Cholesterol, Hypertension, [place] Gastrointestinal History: Reports: Chronic Constipation [employer] History: Reports: Endocrine/Metabolic History: Reports: Diabetes, Type II - Past Surgical History HEENT Surgical History: Reports: Cataract Surgery Cardiovascular Surgical History: Reports: Other (See Below) Other Cardiovascular Surgeries/Procedures: open heart surgery GI Surgical History: Reports: None Endocrine Surgical History: Reports: None Dermatological Surgical History: Reports: None Social & Family History - Family History Family Medical History: Noncontributory - Tobacco Use Smoking Status *Q: Never Smoker - Caffeine Use Caffeine Use: Reports: Coffee Other Caffeine Use: 2 cups of coffee every day ED ROS GENERAL - Review of Systems Review Of Systems: See Below Constitutional: Denies: Fever, Chills HEENT: Reports: No Symptoms Respiratory: Denies: Shortness of Breath, Cough Cardiovascular: Reports: Chest Pain, Edema Endocrine: Reports: No Symptoms GI/Abdominal: Reports: Abdominal Pain, Nausea, Vomiting. Denies: Constipation, Diarrhea : Reports: No Symptoms Skin: Reports: Other (Arthralgias) Neurological: Reports: Difficulty Walking, Weakness Psychiatric: Reports: No Symptoms Hematologic/Lymphatic: Reports: No Symptoms ED EXAM, GENERAL - Physical Exam Exam: See Below Exam Limited By: No Limitations General Appearance: Alert, WD/WN, Obese Eye Exam: Bilateral Eye: Normal Inspection Ears: Normal External Exam Nose: Normal Inspection Throat/Mouth: Normal Inspection, Normal Lips, Normal Voice, No Airway Compromise , Other (Poor dental hygiene) Head: Normocephalic Neck: Supple Respiratory/Chest: No Respiratory Distress, Lungs Clear, Normal Breath Sounds Cardiovascular: Regular Rate, Rhythm, No Murmur GI/Abdominal: Soft, Other (She complains of epigastric as well as mid abdominal tenderness however palpation she is soft, does not appear to wince on palpation though she says were I'm pushing hurts. She also complains of pain that goes from the epigastric area up the center of her chest.) Extremities: Pedal Edema, Other (Decreased range of motion secondary to arthralgias) Neurological: Alert, Oriented Psychiatric: Normal Affect, Normal Mood Skin Exam: Warm, Dry EKG INTERPRETATION EKG Date: 05/27/19 Time: 19:10 EKG Interpretation Comments: First EKG showed an obscured sinus rhythm though there were definite P waves noted, baseline artifact was obscuring the P waves but there was no acute ST or T-wave changes and there is no scheming and noted. 05/27/2019 8:44 PM Second EKG showed a sinus arrhythmia but no acute ST or T-wave changesin the noted and there are flipped T waves in V1 and V2 that is nonspecific. 05/27/2019 10:47 PM Third EKG shows an atrial fibrillation with a rapid ventricular response there really is no acute ST changes though the V leads suggestive my be some mild ischemia when she is in atrial fibrillation. 05/27/2019 11:22 PM 40 EKG shows a slowed rate for atrial fib still some slight ischemic changes in the anterior leads but no acute ST elevation. Course - Vital Signs Last Recorded V/S: Last Vital Signs Temp 97.3 F 05/27/19 19:08 Pulse 79 05/28/19 06:31 Resp 12 05/28/19 06:31 BP 83/41 L 05/28/19 06:31 Pulse Ox 100 05/28/19 06:31 - Orders/Labs/Meds Labs: Laboratory Tests 05/27/19 05/27/19 05/27/19 Range/Units 19:17 19:17 19:17 WBC 10.44 H (3.98-10.04) K/mm3 RBC 4.89 (3.98-5.22) M/mm3 Hgb 13.7 (11.2-15.7) gm/dl Hct 42.8 (34.1-44.9) % MCV 87.5 (79.4-94.8) fl MCH 28.0 (25.6-32.2) pg MCHC 32.0 L (32.2-35.5) g/dl RDW Std Deviation 49.9 H (36.4-46.3) fL Plt Count 263 (182-369) K/mm3 MPV 9.2 L (9.4-12.3) fl Neut % (Auto) 88.1 H (34.0-71.1) % Lymph % (Auto) 8.6 L (19.3-51.7) % [place] % (Auto) 2.9 L (4.7-12.5) % Eos % (Auto) 0.1 L (0.7-5.8) Baso % (Auto) 0.1 (0.1-1.2) % Neut # (Auto) 9.20 H (1.56-6.13) K/mm3 Lymph # (Auto) 0.90 L (1.18-3.74) K/mm3 [place] # (Auto) 0.30 (0.24-0.36) K/mm3 Eos # (Auto) 0.01 L (0.04-0.36) K/mm3 Baso # (Auto) 0.01 (0.01-0.08) K/mm3 Manual Slide Review Abnormal smear Sodium 137 (136-145) mEq/L Potassium 3.4 L (3.5-5.1) mEq/L Chloride 101 (98-107) mEq/L Carbon Dioxide 27 (21-32) mEq/L Anion Gap 12.4 (5-15) BUN 16 (7-18) mg/dL Creatinine 1.1 H (0.55-1.02) mg/dL Est Cr Clr Drug Dosing 30.78 mL/min Estimated GFR (MDRD) 48 (>60) mL/min BUN/Creatinine Ratio 14.5 (14-18) Glucose 196 H (83-115) mg/dL Calcium 9.8 (8.5-10.1) mg/dL Total Bilirubin 1.9 H (0.2-1.0) mg/dL AST 330 H (15-37) U/L ALT 157 H (14-59) U/L Alkaline Phosphatase 199 H (46-116) U/L Troponin I < 0.017 (0.00-0.056) ng/mL C-Reactive Protein 0.3 (<1.0) mg/dL Total Protein 7.5 (6.4-8.2) g/dl Albumin 3.5 (3.4-5.0) g/dl Globulin 4.0 gm/dL Albumin/Globulin Ratio 0.9 L (1-2) Lipase 331 (73-393) U/L H. pylori IgG Antibody Negative (NEGATIVE) 05/27/19 Range/Units 23:15 WBC (3.98-10.04) K/mm3 RBC (3.98-5.22) M/mm3 Hgb (11.2-15.7) gm/dl Hct (34.1-44.9) % MCV (79.4-94.8) fl MCH (25.6-32.2) pg MCHC (32.2-35.5) g/dl RDW Std Deviation (36.4-46.3) fL Plt Count (182-369) K/mm3 MPV (9.4-12.3) fl Neut % (Auto) (34.0-71.1) % Lymph % (Auto) (19.3-51.7) % [place] % (Auto) (4.7-12.5) % Eos % (Auto) (0.7-5.8) Baso % (Auto) (0.1-1.2) % Neut # (Auto) (1.56-6.13) K/mm3 Lymph # (Auto) (1.18-3.74) K/mm3 [place] # (Auto) (0.24-0.36) K/mm3 Eos # (Auto) (0.04-0.36) K/mm3 Baso # (Auto) (0.01-0.08) K/mm3 Manual Slide Review Sodium (136-145) mEq/L Potassium (3.5-5.1) mEq/L Chloride (98-107) mEq/L Carbon Dioxide (21-32) mEq/L Anion Gap (5-15) BUN (7-18) mg/dL Creatinine (0.55-1.02) mg/dL Est Cr Clr Drug Dosing mL/min Estimated GFR (MDRD) (>60) mL/min BUN/Creatinine Ratio (14-18) Glucose (83-115) mg/dL Calcium (8.5-10.1) mg/dL Total Bilirubin (0.2-1.0) mg/dL AST (15-37) U/L ALT (14-59) U/L Alkaline Phosphatase (46-116) U/L Troponin I < 0.017 (0.00-0.056) ng/mL C-Reactive Protein (<1.0) mg/dL Total Protein (6.4-8.2) g/dl Albumin (3.4-5.0) g/dl Globulin gm/dL Albumin/Globulin Ratio (1-2) Lipase (73-393) U/L H. pylori IgG Antibody (NEGATIVE) Meds: Medications Discontinued Medications Generic Name Dose Route Start Last Admin Trade Name Freq PRN Reason Stop Dose Admin Al Hydroxide/Mg Hydroxide 30 0 ml 05/27/19 20:50 05/27/19 20:58 ml/ Lidocaine HCl 15 ml PO 05/27/19 20:51 45 ml ONETIME ONE Administration Diltiazem HCl 20 mg 05/27/19 22:55 05/27/19 23:01 Cardizem IVPUSH 05/27/19 22:56 20 mg ONETIME ONE Administration Hydromorphone HCl 0.5 mg 05/27/19 19:22 05/27/19 19:28 Dilaudid IVPUSH 05/27/19 19:23 0.5 mg ONETIME ONE Administration Hydromorphone HCl 0.5 mg 05/27/19 21:22 05/27/19 21:28 Dilaudid IVPUSH 05/27/19 21:23 0.5 mg ONETIME ONE Administration Hydromorphone HCl 0.5 mg 05/27/19 23:40 05/27/19 23:45 Dilaudid IVPUSH 05/27/19 23:41 0.5 mg ONETIME ONE Administration Hydromorphone HCl 0.5 mg 05/28/19 03:10 05/28/19 03:17 Dilaudid IVPUSH 05/28/19 03:11 0.5 mg ONETIME ONE Administration Sodium Chloride 1,000 mls @ 500 mls/hr 05/27/19 22:15 Normal Saline IV ASDIRECTED SALOME Sodium Chloride 1,000 mls @ 500 mls/hr 05/27/19 22:57 05/27/19 23:07 Normal Saline IV 05/28/19 00:56 500 mls/hr ONETIME ONE Administration Diltiazem HCl 125 mg/ Sodium 125 mls @ 5 mls/hr 05/27/19 23:45 Chloride IV TITRATE SALOME Protocol 5 MG/HR Iopamidol 100 ml 05/28/19 01:01 05/28/19 01:02 Isovue-300 (61%) IVPUSH 05/28/19 01:02 100 ml ONETIME ONE Administration Ondansetron HCl 4 mg 05/27/19 19:22 05/27/19 19:28 Zofran IVPUSH 05/27/19 19:23 4 mg ONETIME ONE Administration Ondansetron HCl 4 mg 05/28/19 07:15 05/28/19 07:21 Zofran IVPUSH 05/28/19 07:16 4 mg ONETIME ONE Administration Pantoprazole Sodium 80 mg 05/27/19 22:14 05/27/19 22:43 Protonix Iv IVPUSH 05/27/19 22:15 80 mg BOLUS ONE Administration - Radiology Interpretation Free Text/Narrative:: Ultrasound of the upper abdomen does not show any acute findings or stones in the common bile duct but it was kind of obscured secondary to bowel gas. CT scan of the abdomen and pelvis shows a 1.7 cm gallstone in the distal common bile duct with dilatation. - Re-Assessments/Exams Free Text/Narrative Re-Assessment/Exam: 05/27/19 22:12 I spoke to the patient and her family regarding ultrasound report as well as the lab with a positive elevated liver enzymes. I do not know why she is having positive elevated liver enzymes at this time. Her lipase was normal and the rest of her blood work was essentially normal. She still has epigastric pain that was not helped with a GI cocktail. 05/27/19 22:57 We have noted while she's been here and then she will periodically go into a rapid rate for unknown reason and were finally able to get an EKG that shows she is going into atrial fibrillation with a fast ventricular response and she' ll go back to normal sinus. 05/28/19 02:46 Spoke to the patient and the family regarding the CT scan results. I was able to get a message from Dr. Esqueda that he felt like an ERCP would be appropriate for her. I spoke to Dr. Santana who is a hospitalist on-call for [facility] in [place] and he agrees to accept the patient in transport for further evaluation and treatment. I did indicate to him that she is been in atrial fibrillation which is new for her while she's been in the ER even though she is in a normal sinus rhythm presently. 05/28/19 03:05 Please note that I gave the patient a choice of place to go in [place] and she requested [facility] that she has seen in the past. 05/28/19 06:13 The patient is been fairly comfortable while waiting for ambulance transport. They were not able to transport her at 3 AM because they didn't have a second crew. Now that the [facility] to [facility] they'll be here to transfer her to [facility]. 05/28/19 07:18 The ambulance crew is here to pick her up and take her to [place]. She has been doing okay still slightly nauseated so we gave her another dose of Zofran before she left the emergency department here. Departure - Departure Time of Disposition: 02:48 Disposition: DC/Tfer to Acute Hospital 02 Reason for Transfer *Q: Other (Needs surgeon speicalist) Condition: Fair Clinical Impression: Elevated liver enzymes, New onset atrial fibrillation Choledocholithiasis with obstruction Qualifiers: Cholecystitis presence: without cholecystitis Qualified Code(s): K80.51 - Calculus of bile duct without cholangitis or cholecystitis with obstruction Referrals: PCP,None [Primary Care Provider] - Forms: ED Department Discharge ED Communication - ED Communication Date/Time Date: 05/28/19 Time Called: 02:49 - Discussed Case With (1) Discussed Case With (1): Admitting Provider Person/s Notified (1): Dr. Santana (He agrees to accept the patient in transport to [facility])
[2019-05-27] MEDS ORDERED: Alum Hydrox/Mag Hydrox/Simeth 30 ML, Lidocaine 2% 15 ML PO ONE ×2 (20:50)
--- NOTE | 2019-05-27 22:10 | US ---
Limited abdominal ultrasound: Multiple real-time images of the upper right abdomen were obtained. Technologist's note: Extremely limited due to body habitus, bowel gas and patient immobility Findings: Liver shows no discrete abnormality. Gallbladder is not seen presumably due to previous cholecystectomy. CHD and CBD are not seen due to bowel gas. Visualized portions of the pancreas appear within normal limits. Right kidney not optimally seen but shows no hydronephrosis. Right kidney measures about 8.9 cm in length. Portal vein shows normal hepatopedal flow. Impression: 1. Somewhat limited study as noted above. 2. No acute abnormality is appreciated. Diagnostic code #2
[2019-05-27] MEDS ORDERED: Pantoprazole 40 MG Vial IVPUSH ONE (22:14)
[2019-05-27] MEDS ORDERED: Sodium Chloride 0.9% 1,000 ML IV SCH (22:15)
[2019-05-27] MEDS ORDERED: Diltiazem 50 MG/10 ML SDV IVPUSH ONE (22:55)
[2019-05-27] MEDS ORDERED: Sodium Chloride 0.9% 1,000 ML IV ONE (22:57)
[2019-05-27] MEDS ORDERED: Diltiazem 125 MG in Sodium Chloride 0.9% 100 ML IV SCH (23:45)
[2019-05-28] MEDS ORDERED: Iopamidol 612 MG/ML 100 ML Bottle IVPUSH ONE (01:01)
[2019-05-28] MEDS ORDERED: HYDROmorphone 0.5 MG/0.5 ML Syringe IVPUSH ONE (03:10)
[2019-05-28 06:37] VITALS: BP 83/41; PULSE 79
[2019-05-28] MEDS ORDERED: Ondansetron 4 MG/2 ML SDV IVPUSH ONE (07:15)
--- NOTE | 2019-05-29 08:55 | CT ---
CT abdomen and pelvis Technique: Multiple axial sections were obtained from above the dome of the diaphragm inferiorly through the pubic symphysis. Intravenous contrast was utilized. No oral contrast has been given which diminishes details of bowel and processes around the bowel. Comparison: Prior CT abdomen and pelvis exam of 06/12/16. Findings: Visualized lung bases show a minimal right-sided pleural effusion and atelectasis. Liver shows intrahepatic and extrahepatic biliary duct dilatation. Common bile duct measures approximately 2.0 cm. This is increased in size from previous CT exam. Soft tissue material is seen within the distal CBD presumably due to calculi within the distal CBD. Pancreas is atrophic. Kidneys show symmetric contrast enhancement without hydronephrosis or mass. Spleen shows several low-density findings which are slightly more prominent than on previous exam. Aorta and iliac vessel shows diffuse atherosclerotic calcification without aneurysm. No retroperitoneal adenopathy or mesenteric abnormalities are seen. Cystic mass is noted within the left side of the pelvis which measures 12.5 cm x 6.5 cm. When measuring in similar measurement planes, this finding is felt to be stable from previous exam. Small cyst is noted within the right pelvis measuring 2.8 cm. No additional pelvic abnormality is seen. Slight diverticulosis noted within the descending and sigmoid regions. No inflammatory change or free fluid is seen within the abdomen or pelvis. Delayed images shows spondylotic contrast within the distal ureters and bladder. Appendix not seen with certainty. Bone window settings were reviewed which show osteopenia and degenerative change within the spine. Degenerative change also noted within both hips. No acute osseous abnormality is appreciated. Impression: 1. Extrahepatic and intrahepatic biliary duct dilatation increased in size from prior exam. Soft tissue material within the distal CBD presumably due to common bile duct stones. Surgical consultation is recommended. 2. Stable cyst within the left pelvis with measurements as noted above. This is similar to prior CT exam of 06/12/16. Small cyst within the right pelvis is seen which is stable. 3. Small right-sided pleural effusion and mild bibasal are atelectasis. 4. Low-density findings within the spleen of uncertain etiology. These findings are slightly more prominent than on previous exam. Diagnostic code #5 I agree with preliminary report from [facility], finalized on 05/28/19, 2:44 AM Central Time
== END 2019-05-28 07:24 ==
LOC: JD.ED 19:02
DX: I48.91 Unspecified atrial fibrillation (principal); K80.51 Calculus of bile duct without cholangitis or cholecystitis with obstruction; R74.8 Abnormal levels of other serum enzymes; I10 Essential (primary) hypertension; E11.9 Type 2 diabetes mellitus without complications; I25.2 Old myocardial infarction; Z98.49 Cataract extraction status, unspecified eye; Z79.82 Long term (current) use of aspirin; Z79.899 Other long term (current) drug therapy; Z79.4 Long term (current) use of insulin; Z91.09 Other allergy status, other than to drugs and biological substances; Z88.8 Allergy status to other drugs, medicaments and biological substances
CPT/HCPCS: 36415; 74177; 74177-26; 76705; 76705-26; 80053; 83690; 84484; 85025; 86140; 86677; 93005; 96361; 96374; 96375; 96376; 99285-25; A9270-GY; C9113; J1170; J2405; J3490; J7040; Q9967

== ENCOUNTER 2022-10-06 09:22 | Emergency (ER) | payer MEDICARE, BC ==
[2022-10-06 09:44] VITALS: PULSE 77
[2022-10-06] MEDS ORDERED: Lactated Ringers 1,000 ML IV ONE (10:11)
[2022-10-06] MEDS ORDERED: Iopamidol 755 Mg/ML 100 ML Bottle IVPUSH ONE (11:30)
[2022-10-06] MEDS ORDERED: Iopamidol 755 MG/ML 50 ML Bottle IVPUSH ONE (11:30)
[2022-10-06] MEDS: Sodium Chloride 0.9% 10 ML Syringe FLUSH PRN ×2 (11:34→11:44)
[2022-10-06] MEDS ORDERED: cefTRIAXone 2 GM in Sodium Chloride 0.9% 100 ML IV ONE (11:34)
[2022-10-06] MEDS ORDERED: Potassium Chloride 20 MEQ Tab.ER PO ONE (11:34)
[2022-10-06 13:58] VITALS: BP 164/94
== END 2022-10-06 13:45 | disposition home health service (06) ==
LOC: JD.ED 09:22
DX: N39.0 Urinary tract infection, site not specified (principal); E87.6 Hypokalemia; E78.00 Pure hypercholesterolemia, unspecified; I10 Essential (primary) hypertension; I25.2 Old myocardial infarction; E11.9 Type 2 diabetes mellitus without complications; Z91.048 Other nonmedicinal substance allergy status; Z79.82 Long term (current) use of aspirin; Z79.899 Other long term (current) drug therapy
CPT/HCPCS: 36415; 71260; 74177; 80053; 81001; 83605; 83690; 85025; 87086; 87088; 87186; 96361; 96365; 99284; A9270; J0696; J3490; J7120; Q9967

== ENCOUNTER 2024-07-09 14:24 | Inpatient (IN) | payer BC, MEDICARE, OTHER ==
[2024-07-09] MEDS ORDERED: Sodium Chloride 0.9% 10 ML Syringe FLUSH PRN (15:13)
[2024-07-09 15:27] LABS: BASOPHILS PERCENT AUTO 0.2 % (0.0-1.0); EOSINOPHILS PERCENT AUTO 0.2 % (0.0-6.0); HEMATOCRIT 34.4 % (37.0-47.0); IMMATURE GRAN ABSOLUTE AUTO 0.08 K/mm3 (0.00-0.05); IMMATURE GRAN PERCENT AUTO 0.6 % (0.0-0.4); LYMPHOCYTES ABSOLUTE AUTO 1.3 K/mm3 (1.0-4.8); LYMPHOCYTES PERCENT AUTO 9.6 % (24.0-44.0); MEAN CORPUSCULAR HEMOGLOBIN 21.6 pg (28.0-32.0); MEAN CORPUSCULAR HGB CONC 29.1 g/dl (32.0-36.0); MEAN CORPUSCULAR VOLUME 74.1 fl (83.0-99.0); MEAN PLATELET VOLUME 9.4 fl (9.4-12.3); MONOCYTES ABSOLUTE AUTO 1.6 K/mm3 (0.0-0.8); MONOCYTES PERCENT AUTO 12.1 % (0.0-8.0); NEUTROPHILS ABSOLUTE AUTO 10.3 K/mm3 (1.8-7.7); NEUTROPHILS PERCENT AUTO 77.3 % (41.0-71.0); NRBC ABSOLUTE 0.04 (0.00-0.02); NRBC PERCENT 0.3 % (0.0-0.2); PLATELET COUNT,PLT 290 K/mm3 (150-400); RED BLOOD CELL COUNT 4.64 M/mm3 (4.10-5.30); WHITE BLOOD CELL COUNT,WBC 13.27 K/mm3 (3.9-11.3)
[2024-07-09 15:41] LABS: A/G RATIO 0.9 (1-2); ALBUMIN 3.2 g/dl (3.4-5.0); ANION GAP 15.5 (5-15); BILIRUBIN TOTAL 1.8 mg/dL (0.2-1.0); BUN/CREATININE RATIO 12.9 (14-18); CALCIUM 8.9 mg/dL (8.5-10.1); CREATININE 1.7 mg/dL (0.55-1.02); EST CRCL DRUG DOSING (CG) 22.65 mL/min; POTASSIUM,K 3.5 mEq/L (3.5-5.1); PROTEIN TOTAL,TP 6.9 g/dl (6.4-8.2)
[2024-07-09 16:27] LABS: SLIDE REVIEW ABNORMAL SMEAR
[2024-07-09 16:36] LABS: LACTIC ACID 3.8 mmol/L (0.4-2.0)
[2024-07-09 17:24] LABS: CORONAVIRUS COVID-19 NAA NEGATIVE (NEGATIVE); INFLUENZA A NAA NEGATIVE (NEGATIVE); RESPIRATORY SYNCYTIAL VIR NAA NEGATIVE (NEGATIVE)
[2024-07-09 17:25] LABS: APPEARANCE,URINE CLOUDY (Clear); BILIRUBIN,URINE NEGATIVE (Negative); COLOR,URINE YELLOW (Yellow); GLUCOSE,URINE NEGATIVE (Negative); KETONES,URINE NEGATIVE (Negative); LEUKOCYTE ESTERASE,URINE TRACE (Negative); NITRITE,URINE NEGATIVE (Negative); OCCULT BLOOD,URINE TRACE-LYSED (Negative); PH,URINE 8.5 (5.0-8.0); PROTEIN,URINE 2+ (Negative)
[2024-07-09] MEDS: cefTRIAXone 1 GM in Sodium Chloride 0.9% 100 ML IV ONE (18:02)
[2024-07-09 18:21] LABS: RBC,URINE 0-5 /hpf (0-5)
[2024-07-09 18:22] LABS: AMORPHOUS SEDIMENT,URINE MODERATE /hpf (NOT SEEN); BACTERIA,URINE MANY /hpf (FEW); EPITHELIAL CELLS,URINE 0-5 /hpf (0-5); MUCUS,URINE NOT SEEN /hpf (FEW); TRIPLE PHOSPHATE CRYSTALS,UR MODERATE /hpf
[2024-07-09] MEDS ORDERED: Sodium Chloride 0.9% 250 ML IV SCH (18:30)
[2024-07-09] MEDS ORDERED: 50% Dextrose in Water 50 ML Syringe IVPUSH PRN (18:47)
[2024-07-09] MEDS: Sodium Chloride 0.9% 500 ML IV ONE (18:50)
[2024-07-09] MEDS ORDERED: Morphine 2 MG/ML SYRINGE IVPUSH PRN (18:55)
[2024-07-09] MEDS ORDERED: Ondansetron 4 MG/2 ML SDV IV PRN (18:55)
[2024-07-09] MEDS ORDERED: Acetaminophen 325 MG Tab PO PRN (18:55)
[2024-07-09] MEDS ORDERED: Sennosides/Docusate Sodium 50-8.6 MG Tab PO PRN (18:55)
[2024-07-09] MEDS ORDERED: Naloxone 0.4 MG/ML SDV IVPUSH PRN (18:55)
[2024-07-09] MEDS ORDERED: oxyCODONE 5 MG Tab PO PRN (18:55)
[2024-07-09 19:24] LABS: FERRITIN 22 ng/ml (8-252); IRON,FE 20 ug/dL (50-170); PERCENT FE SATURATION 6 % (20-55); TRANSFERRIN 287 mg/dL (202-364)
[2024-07-09 19:30] LABS: TOTAL IRON BINDING CAPACITY 359 ug/dL (100-400)
[2024-07-09] MEDS: Metoprolol Tartrate 50 MG Tab PO SCH (21:55)
[2024-07-09] MEDS: Famotidine 20 MG/2 ML SDV IVPUSH SCH (21:56)
[2024-07-09] MEDS: Metoprolol Tartrate 5 MG/5 ML SDV IVPUSH PRN (21:57)
[2024-07-09] MEDS: Insulin Glargine,Human Rec. Analog 100 Units/ML 3 ML Pen SUBCUT SCH (22:01)
[2024-07-09] MEDS: Insulin Lispro 100 Unit/ML 3 ML KwikPen SUBCUT SCH (22:02)
[2024-07-09] MEDS: Metoprolol Tartrate 5 MG/5 ML SDV IVPUSH ONE ×2 (22:44→23:49)
[2024-07-09] MEDS: Apixaban 5 MG Tab PO SCH ×2 (22:46→22:58)
[2024-07-09] MEDS: Metoprolol Tartrate 25 MG Tab PO ONE (23:51)
[2024-07-10] MEDS: Melatonin 3 MG Tab PO PRN (00:02)
[2024-07-10] MEDS: Diltiazem 25 MG/5 ML SDV IVPUSH ONE (03:59)
[2024-07-10 05:26] LABS: BASOPHILS PERCENT AUTO 0.1 % (0.0-1.0); EOSINOPHILS PERCENT AUTO 0.1 % (0.0-6.0); HEMOGLOBIN 9.5 gm/dl (12.0-16.0); IMMATURE GRAN ABSOLUTE AUTO 0.09 K/mm3 (0.00-0.05); IMMATURE GRAN PERCENT AUTO 0.6 % (0.0-0.4); LYMPHOCYTES ABSOLUTE AUTO 0.9 K/mm3 (1.0-4.8); MEAN CORPUSCULAR HEMOGLOBIN 21.4 pg (28.0-32.0); MEAN CORPUSCULAR HGB CONC 28.8 g/dl (32.0-36.0); MEAN CORPUSCULAR VOLUME 74.5 fl (83.0-99.0); MEAN PLATELET VOLUME 9.3 fl (9.4-12.3); MONOCYTES ABSOLUTE AUTO 1.4 K/mm3 (0.0-0.8); MONOCYTES PERCENT AUTO 10.2 % (0.0-8.0); NEUTROPHILS ABSOLUTE AUTO 11.8 K/mm3 (1.8-7.7); NRBC PERCENT 0.7 % (0.0-0.2); PLATELET COUNT,PLT 267 K/mm3 (150-400); RED BLOOD CELL COUNT 4.43 M/mm3 (4.10-5.30); WHITE BLOOD CELL COUNT,WBC 14.18 K/mm3 (3.9-11.3)
[2024-07-10 05:39] LABS: HEMOGLOBIN A1C 7.4 %
[2024-07-10 05:53] LABS: A/G RATIO 0.9 (1-2); ALBUMIN 2.8 g/dl (3.4-5.0); BILIRUBIN TOTAL 2.7 mg/dL (0.2-1.0); BUN/CREATININE RATIO 12.7 (14-18); C-REACTIVE PROTEIN 5.33 mg/dL (<0.30); CALCIUM 8.6 mg/dL (8.5-10.1); CREATININE 2.2 mg/dL (0.55-1.02); EST CRCL DRUG DOSING (CG) 17.5 mL/min; PHOSPHORUS 5.3 mg/dL (2.6-4.7); PROTEIN TOTAL,TP 6.1 g/dl (6.4-8.2); TSH 1.838 uIU/mL (0.358-3.74)
[2024-07-10 06:14] LABS: SLIDE REVIEW ABNORMAL SMEAR
[2024-07-10] MEDS: Insulin Lispro 100 Unit/ML 3 ML KwikPen SUBCUT SCH (07:55)
[2024-07-10] MEDS: Levothyroxine 88 MCG Tab PO SCH (08:19)
[2024-07-10] MEDS: Apixaban 2.5 MG Tab PO SCH (08:19)
[2024-07-10] MEDS: Aspirin 81 MG Tab.EC PO SCH (08:19)
[2024-07-10] MEDS ORDERED: Sodium Ferric Gluconate Cmplex 250 MG in Sodium Chloride 0.9% 100 ML IV SCH (09:00)
[2024-07-10] MEDS ORDERED: cefTRIAXone 1 GM in Sodium Chloride 0.9% 100 ML IV SCH (09:00)
[2024-07-10] MEDS: Sodium Ferric Gluconate Cmplex 250 MG in Sodium Chloride 0.9% 100 ML IV ONE (09:15)
[2024-07-10] MEDS ORDERED: Diltiazem IR 30 MG Tab PO SCH (10:00)
[2024-07-10] MEDS: Furosemide 40 MG Tab PO ONE (14:36)
[2024-07-10] MEDS: cefTRIAXone 1 GM in Sodium Chloride 0.9% 100 ML IV SCH (17:45)
[2024-07-10] MEDS: QUEtiapine 25 MG Tab PO SCH (21:54)
[2024-07-11] MEDS: Haloperidol Lactate 5 MG/ML SDV IM ONE (00:22)
[2024-07-11] MEDS: LORazepam 2 MG/ML SDV IVPUSH ONE (01:05)
[2024-07-11 06:42] LABS: BASOPHILS PERCENT AUTO 0.1 % (0.0-1.0); HEMATOCRIT 32.2 % (37.0-47.0); HEMOGLOBIN 9.5 gm/dl (12.0-16.0); IMMATURE GRAN ABSOLUTE AUTO 0.04 K/mm3 (0.00-0.05); IMMATURE GRAN PERCENT AUTO 0.3 % (0.0-0.4); LYMPHOCYTES ABSOLUTE AUTO 1.4 K/mm3 (1.0-4.8); LYMPHOCYTES PERCENT AUTO 9.7 % (24.0-44.0); MEAN CORPUSCULAR HEMOGLOBIN 21.3 pg (28.0-32.0); MEAN CORPUSCULAR HGB CONC 29.5 g/dl (32.0-36.0); MEAN CORPUSCULAR VOLUME 72.4 fl (83.0-99.0); MEAN PLATELET VOLUME 9.8 fl (9.4-12.3); MONOCYTES ABSOLUTE AUTO 1.2 K/mm3 (0.0-0.8); MONOCYTES PERCENT AUTO 8.2 % (0.0-8.0); NEUTROPHILS ABSOLUTE AUTO 11.8 K/mm3 (1.8-7.7); NEUTROPHILS PERCENT AUTO 81.7 % (41.0-71.0); NRBC ABSOLUTE 0.21 (0.00-0.02); NRBC PERCENT 1.5 % (0.0-0.2); PLATELET COUNT,PLT 258 K/mm3 (150-400); RED BLOOD CELL COUNT 4.45 M/mm3 (4.10-5.30); WHITE BLOOD CELL COUNT,WBC 14.44 K/mm3 (3.9-11.3)
[2024-07-11 07:00] LABS: A/G RATIO 0.8 (1-2); ALBUMIN 2.5 g/dl (3.4-5.0); ANION GAP 14.4 (5-15); BUN/CREATININE RATIO 19.6 (14-18); C-REACTIVE PROTEIN 6.4 mg/dL (<0.30); CALCIUM 8.5 mg/dL (8.5-10.1); CREATININE 2.5 mg/dL (0.55-1.02); EST CRCL DRUG DOSING (CG) 15.4 mL/min; POTASSIUM,K 4.4 mEq/L (3.5-5.1); PROTEIN TOTAL,TP 5.5 g/dl (6.4-8.2)
[2024-07-11] MEDS: LORazepam 2 MG/ML SDV IVPUSH PRN (08:41)
[2024-07-11] MEDS: Sodium Chloride 0.9% 1,000 ML IV SCH (09:19)
[2024-07-11] MEDS: QUEtiapine 25 MG Tab PO SCH (17:08)
[2024-07-12 04:49] LABS: BASOPHILS PERCENT AUTO 0.2 % (0.0-1.0); EOSINOPHILS PERCENT AUTO 0.3 % (0.0-6.0); HEMATOCRIT 32.7 % (37.0-47.0); HEMOGLOBIN 9.9 gm/dl (12.0-16.0); IMMATURE GRAN ABSOLUTE AUTO 0.05 K/mm3 (0.00-0.05); IMMATURE GRAN PERCENT AUTO 0.5 % (0.0-0.4); LYMPHOCYTES PERCENT AUTO 9.4 % (24.0-44.0); MEAN CORPUSCULAR HEMOGLOBIN 21.8 pg (28.0-32.0); MEAN CORPUSCULAR HGB CONC 30.3 g/dl (32.0-36.0); MEAN CORPUSCULAR VOLUME 71.9 fl (83.0-99.0); MEAN PLATELET VOLUME 9.5 fl (9.4-12.3); MONOCYTES ABSOLUTE AUTO 1.2 K/mm3 (0.0-0.8); MONOCYTES PERCENT AUTO 10.8 % (0.0-8.0); NEUTROPHILS ABSOLUTE AUTO 8.7 K/mm3 (1.8-7.7); NEUTROPHILS PERCENT AUTO 78.8 % (41.0-71.0); NRBC ABSOLUTE 0.11 (0.00-0.02); PLATELET COUNT,PLT 253 K/mm3 (150-400); RED BLOOD CELL COUNT 4.55 M/mm3 (4.10-5.30); WHITE BLOOD CELL COUNT,WBC 10.97 K/mm3 (3.9-11.3)
[2024-07-12 05:19] LABS: A/G RATIO 0.7 (1-2); ALBUMIN 2.3 g/dl (3.4-5.0); ANION GAP 15.4 (5-15); C-REACTIVE PROTEIN 5.82 mg/dL (<0.30); CALCIUM 8.4 mg/dL (8.5-10.1); CREATININE 2.3 mg/dL (0.55-1.02); EST CRCL DRUG DOSING (CG) 16.74 mL/min; POTASSIUM,K 3.4 mEq/L (3.5-5.1); PROTEIN TOTAL,TP 5.4 g/dl (6.4-8.2)
[2024-07-12 06:05] VITALS: PULSE 89
[2024-07-12 08:28] VITALS: BP 124/74
== END 2024-07-12 13:08 | disposition home or self-care (01) | DRG 871 ==
LOC: JD.ED 14:24 → JD.MS 18:31
PROVIDERS: ADMIT Student in an Organized Health Care Education/Training Program; ATTEND Family Medicine
DX: A41.51 Sepsis due to Escherichia coli [E. coli] (principal); G92.8 Other toxic encephalopathy; I50.33 Acute on chronic diastolic (congestive) heart failure; J96.01 Acute respiratory failure with hypoxia; N39.0 Urinary tract infection, site not specified; N17.9 Acute kidney failure, unspecified; E87.20 Acidosis, unspecified; F03.911 Unspecified dementia, unspecified severity, with agitation; Z91.048 Other nonmedicinal substance allergy status; Z91.018 Allergy to other foods; R65.20 Severe sepsis without septic shock; I48.91 Unspecified atrial fibrillation; I25.10 Atherosclerotic heart disease of native coronary artery without angina pectoris; E11.9 Type 2 diabetes mellitus without complications; E03.9 Hypothyroidism, unspecified; D50.9 Iron deficiency anemia, unspecified; K59.09 Other constipation; E78.00 Pure hypercholesterolemia, unspecified; I25.2 Old myocardial infarction; I11.0 Hypertensive heart disease with heart failure; H54.7 Unspecified visual loss; G31.9 Degenerative disease of nervous system, unspecified; E80.6 Other disorders of bilirubin metabolism; R74.01 Elevation of levels of liver transaminase levels; Z95.1 Presence of aortocoronary bypass graft; Z88.8 Allergy status to other drugs, medicaments and biological substances; Z79.01 Long term (current) use of anticoagulants; Z79.4 Long term (current) use of insulin; Z79.82 Long term (current) use of aspirin; Z98.49 Cataract extraction status, unspecified eye; Z79.899 Other long term (current) drug therapy; Z79.890 Hormone replacement therapy
CPT/HCPCS: 0241U; 36415; 51702; 70450; 71045; 80053; 81001; 82140; 82728; 82947; 83036; 83540; 83605; 83735; 83880; 84100; 84443; 84466; 84484; 85025; 86140; 87040; 87086; 87088; 87186; 93005; 93306; 94760; 94761; 96365; 97161; 97530; 99285; 93010; 99223; 99233; 99239; A9270-GY; C1758; J0696; J1815; J1815-GY; J2060; J2916; J3490; J7030

== ENCOUNTER 2024-07-20 14:21 | Emergency (ER) | payer MEDICARE ==
[~2024-07-20 14:21] MED LIST: EPINEPHrine 1:10,000 1 MG/10 ML Syringe ONE; Sodium Bicarbonate 8.4% 50 MEQ/50 ML Syringe ONE
== END 2024-07-20 16:25 | disposition expired ==
LOC: JD.ED 14:21
DX: I46.9 Cardiac arrest, cause unspecified (principal); I10 Essential (primary) hypertension; I25.2 Old myocardial infarction; E11.9 Type 2 diabetes mellitus without complications; Z79.4 Long term (current) use of insulin; Z79.82 Long term (current) use of aspirin; Z79.899 Other long term (current) drug therapy; Z91.048 Other nonmedicinal substance allergy status
CPT/HCPCS: 92950; 99285; J0171; J3490